=== PATIENT | female | born 1960 | race Caucasian/White ===

== ENCOUNTER 2018-01-16 08:30 | Day surgery (SDC) | payer OTHER, SELFPAY ==
[2018-01-16 08:51] VITALS: BP 154/87; PULSE 89; RESP 16; TEMP 36.7; O2SAT 99; BMI 42.7
--- NOTE | 2018-01-16 09:59 | PCM.HP.STD ---
Problem List (1) Screening for colon cancer Status: Acute History of Present Illness Date of Admission: 01/16/18 The patient is a 57 year old F who presents for screening colonoscopy. Past Medical History Allergies Penicillins Allergy (Verified 01/11/18 15:17) Anaphylaxis Home Medications: Ambulatory Orders Medication Instructions Recorded NK 01/11/18 Smoking Status: Never smoker Tobacco Use: Non-smoker - *Family History Maternal History Items: No pertinent history Review of Systems Cardiovascular: Denies: Chest Pain, Chest Pressure, Chest Tightness, Palpitations Respiratory: Denies: Cough, Hemoptysis, Shortness of breath at rest, Shortness of breath upon exertion, Wheezing Gastrointestinal: Denies: Abdominal Pain, Constipation, Diarrhea, Hematemesis, Nausea, Melena, Vomiting VTE Information - Inpt Only VTE Present on Admission: No VTE Mechan Device Prophylaxis: None VTE Pharm Prophylaxis ordered?: No Reason prophylaxis not ordered:: Treatment Not Indicated Patient Problems: Active and Suspected Problems Screening for colon cancer (Acute) - Physical Exam General: Alert, Oriented x3 Lungs: Clear to auscultation Cardiovascular: Regular rate, Regular Rhythm, No murmurs Abdomen: Bowel Sounds Present, Soft, Non Tender, Non-Distended Vital Signs Temp Pulse Resp BP Pulse Ox 98.0 F 89 16 154/87 H 99 01/16/18 08:51 01/16/18 08:51 01/16/18 08:51 01/16/18 08:51 01/16/18 08:51 Oxygen Delivery Method Room Air Weight: 233 lb 11.04 oz Body Mass Index (BMI) 42.7 Assessment/Plan All Active Problems Screening for colon cancer (Acute) My plan is to perform a colonoscopy.
--- NOTE | 2018-01-16 10:00 | COLBX_PTH ---
PATIENT: RG DAY LOC: EN U#:[id number] AGE/SX: 57/F ROOM: RE01/16/[address]: Dr. Dustin Garcia MD : 1960 BED: DIS: 01/16/2018 SPEC #: [id number] RECD: 01/16/18 16:35 STATUS: JUSTYNA RELucas #: [id number] BRENNEN: 01/16/18 10:[address]: Dustin Garcia DEPT: SURGICAL PATHOLOGY RECD BY: Marky Yusuf ENTERED: 01/17/18 11:47 SP TYPE: COLON BX OTHR DR: Dr. Jono Moncada MD Tissues: Sigmoid colon biopsy Procedures: Surgery Specimen Level IV HEADER OPERATION: Colonoscopy (MAC) PRE-OP DIAGNOSIS: Screening TISSUE SUBMITTED: Biopsy of sigmoid polyps MICROSCOPIC DIAGNOSIS Sigmoid polyps, biopsy: Fragments of hyperplastic polyp. SJ:aristeo 01/18/18 MICROSCOPIC DESCRIPTION Slides are reviewed. GROSS DESCRIPTION Received in fixative is one container labeled with the patient's name and designated biopsy of sigmoid polyps. The specimen consists of two irregular fragments of light joseph soft tissue that in aggregate measure 0.8 x 0.3 x 0.1 cm. The specimen is totally submitted in one cassette. / SJ:aristeo 01/17/18 TC:1 CPT: 63762
--- NOTE | 2018-01-16 10:04 | OP.ENDO_ITS ---
Patient Name: Johana Maria Procedure Date: 01/16/2018 9:31 AM Date of : 1960 Age: 57 Procedure: Colonoscopy Indications: Screening for colorectal malignant neoplasm Providers: Dustin Garcia MD Referring MD: Dustin Garcia MD Medicines: See the Anesthesia note for documentation of the administered medications Patient Profile: Last Colonoscopy: none. The patient's first colonoscopy is today. Complications: No immediate complications. Procedure: Pre-Anesthesia Assessment: - Prior to the procedure, a History and Physical was performed, and patient medications and allergies were reviewed. The patient's tolerance of previous anesthesia was also reviewed. The risks and benefits of the procedure and the sedation options and risks were discussed with the patient. All questions were answered, and informed consent was obtained. Prior Anticoagulants: The patient has taken no previous anticoagulant or antiplatelet agents. ASA Grade Assessment: III - A patient with severe systemic disease. After reviewing the risks and benefits, the patient was deemed in satisfactory condition to undergo the procedure. After I obtained informed consent, the scope was passed under direct vision. Throughout the procedure, the patient's blood pressure, pulse, and oxygen saturations were monitored continuously. The adult colonoscope was introduced through the anus and advanced to the ileocecal valve. The colonoscopy was performed without difficulty. The patient tolerated the procedure well. The quality of the bowel preparation was good. Scope In: 9:45:24 AM Scope Withdrawal Time 0 hours 7 minutes 54 seconds Scope Out: 9:58:41 AM Total Procedure Duration Time 0 hours 13 minutes 17 seconds Findings: Two 4 mm polyp was found in the recto-sigmoid colon. The polyp was sessile. The polyp was removed with a jumbo cold forceps. Resection and retrieval were complete. Impression: - One 4 mm polyp at the recto-sigmoid colon, removed with a jumbo cold forceps. Resected and retrieved. Recommendation: - Discharge patient to home. - Resume previous diet. - Continue present medications. - Await pathology results. - Repeat colonoscopy in 3 years for surveillance. - Return to my office in 1 week. Procedure Code(s): --- Professional --- 48141, Colonoscopy, flexible; with biopsy, single or multiple Diagnosis Code(s): --- Professional --- Z12.11, Encounter for screening for malignant neoplasm of colon D12.7, Benign neoplasm of rectosigmoid junction CPT copyright 2017 [employer] [place] [employer]. All rights reserved. The codes documented in this report are preliminary and upon enrobing machine feeder review may be revised to meet current compliance requirements. MD Dustin Levy MD 01/16/2018 10:03:53 AM This report has been signed electronically. Number of Addenda: 0 Note Initiated On: 01/16/2018 9:31 AM
[2018-01-16 10:05] VITALS: BP 125/86; BP 154/87; PULSE 79; RESP 16; TEMP 36.8; O2SAT 96
[2018-01-16 10:10] VITALS: BP 124/81; BP 154/87; PULSE 73; RESP 16
[2018-01-16 10:15] VITALS: BP 127/89; BP 154/87; PULSE 71; RESP 16; O2SAT 99
[2018-01-16 10:20] VITALS: BP 133/94; BP 154/87; PULSE 74; RESP 16; TEMP 36.6; O2SAT 100
[2018-01-16 10:39] VITALS: BP 154/87
== END 2018-01-16 10:40 | disposition home or self-care (01) ==
LOC: EN 08:33 → AC 08:34
PROVIDERS: Family Provider Family Medicine; PCP Family Medicine; Referring Provider Surgery; Visit Provider Surgery
PROC: 0DJD8ZZ Inspection of Lower Intestinal Tract, Via Natural or Artificial Opening Endoscopic (ICD-10-PCS; CPT 45378; principal; 2018-01-16 09:55)
DX: Z12.11 Encounter for screening for malignant neoplasm of colon (principal); D12.7 Benign neoplasm of rectosigmoid junction
CPT/HCPCS: 45380; 88305; J7120

== ENCOUNTER → 2018-11-10 15:30 | Outpatient (CLI) | payer OTHER, SELFPAY ==
--- NOTE | 2018-11-10 15:09 | BI_ITS ---
MAMMOGRAPHY - BILATERAL SCREENING REASON FOR EXAM: Female, 58 years old. Routine annual screening examination. PERTINENT HISTORY: Non-contributory. TECHNIQUE: Digital bilateral breast alan (3D mammographic acquisition) in the CC and MLO projections. 2-D mediolateral oblique (MLO) and craniocaudad (CC) views of both breasts were obtained. CAD: Full Field Digital Mammography with Computer Added Detection was performed. COMPARISON: Comparison is made with prior examination dated July 31, 2013. FINDINGS: Breast Composition: The breasts are heterogeneously dense, which may obscure small masses. There are no dominant masses or suspicious calcifications. Stable benign-appearing bilateral axillary lymph nodes. No other significant abnormalities are identified. There has been no significant change since the prior study. BI/SCREEN MAMM (CAD) W/ALAN BILAT IMPRESSION: Stable bilateral screening mammogram. Yearly follow-up mammogram recommended. (A) ASSESSMENT CATEGORY: BIRADS Category 2: Benign. A letter regarding these results will be sent to the patient by the facility within 30 days. Approximately 10% of breast cancers are not detected by mammography. A normal mammogram should not delay biopsy of a clinically suspicious abnormality. [id number] Electronically Signed: Jonathon Erazo, at 13:17 EDT , Service support ,
== END ==
PROVIDERS: Family Provider Family Medicine; PCP Family Medicine; Referring Provider Family Medicine; Visit Provider Family Medicine
DX: Z12.31 Encounter for screening mammogram for malignant neoplasm of breast (principal)
CPT/HCPCS: 77063; 77067

== ENCOUNTER → 2020-01-14 15:51 | Outpatient (CLI) | payer OTHER, SELFPAY ==
--- NOTE | 2020-01-14 15:54 | RAD_ITS ---
STUDY: X-RAY - LUMBAR SPINE REASON FOR EXAM: Female, 59 years old. Lumbar strain, pain more on right side for several days TECHNIQUE: 5 view(s) of the lumbar spine were obtained including oblique views. COMPARISON: None FINDINGS: Normal lumbar lordosis. There is a mild dextroscoliosis of the lumbar spine. There is a normal alignment of the vertebrae. There is multilevel endplate spondylosis of the lumbar vertebrae. There is multi-level degenerative disc disease with multi-level disc space narrowing. The soft tissue structures are unremarkable. RAD/L/S Spine Min 4 Views IMPRESSION: Degenerative changes of the spine, as detailed above. Electronically Signed: Jonathon Erazo, at 15:51 EDT , Service support ,
== END ==
PROVIDERS: PCP Family Medicine; Referring Provider Nurse Practitioner Family; Visit Provider Nurse Practitioner Family
DX: S39.012A Strain of muscle, fascia and tendon of lower back, initial encounter (principal)
CPT/HCPCS: 72110

== ENCOUNTER → 2020-04-22 10:52 | Outpatient (CLI) | payer OTHER, SELFPAY ==
[2020-04-22 12:03] LABS: Absolute Lymphocyte Count 3.24 X10^3/uL (0.83-4.51); Absolute Neutrophil Count 3.4 X10^3/uL (2.0-7.7); Basophil# 0.08 X10^3/uL; Basophil% 1.1 % (0-1); Eosinophil# 0.13 X10^3/uL; Eosinophils% 1.8 % (0-5); Hematocrit 43.5 % (37-47); Hemoglobin 14.6 g/dL (12.0-15.0); Lymphocyte # 3.24 X10^3/ul (4.0); Mean Corp Hgb Conc 33.6 g/dL (32-36); Mean Corpuscular Hgb 28.3 pg (27.0-32.0); Mean Corpuscular Volume 84.3 fL (81-99); Mean Platelet Vol. 11.3 fl (6.2-12.0); Monocyte# 0.47 X10^3/uL; Monocyte% 6.4 % (0-10); NRBC Flagged by Analyzer 0 % (0-5); Neutrophil # 3.43 X10^3/uL (2.7-7.7); Neutrophil % 46.6 % (47-70); Platelet Count 254 K/mm3 (150-450); RBC Distribution Width CV 12.3 % (11.6-14.6); RBC Distribution Width SD 37.8 fl (35.1-43.9); Red Blood Count 5.16 M/mm3 (4.2-5.4); White Blood Count 7.4 K/mm3 (4.4-11.0)
[2020-04-22 12:46] LABS: ALB/GLOB Ratio 0.9 RATIO (0.9-2.4); AST(SGOT) 34 U/L (15-37); Alanine Aminotransfer ALT/SGPT 56 U/L (13-56); Albumin, Serum 3.8 g/dL (3.2-5.0); Alkaline Phosphatase 87 U/L (45-117); Anion Gap 8 (5-15); BUN 13 mg/dL (7-18); BUN/Creat Ratio 13.1 RATIO (10-20); Calcium,Total 9.2 mg/dL (8.5-10.1); Chloride 107 mmol/L (98-107); Cholesterol 162 mg/dL (200); EST Glomerular Filtration Rate 61 mL/min (>60); Est Glom Filt Rate - Afr Amer 73 mL/min (>60); Globulin 4.2 g/dL (2.2-4.2); Glucose 228 mg/dL (74-106); High Density Lipoprotein 47 mg/dL; Potassium 3.7 mmol/L (3.5-5.1); Sodium Level 139 mmol/L (136-145); Thyroid Stim Hormone (TSH) 1.32 uIU/mL (0.358-3.74); Triglycerides 170 mg/dL; Very Low Density Lipoprotein 34 mg/dL (5-40)
[2020-04-22 13:09] LABS: Microalbumin:Creatinine Ratio 29.4 mg/g CRE (<30 mg/g CRE)
[2020-04-22 20:06] LABS: Hemoglobin A1c 6.5 % (3.8-5.6)
== END ==
PROVIDERS: PCP Family Medicine; Visit Provider Family Medicine
DX: I10 Essential (primary) hypertension (principal); E11.42 Type 2 diabetes mellitus with diabetic polyneuropathy
CPT/HCPCS: 36415; 80053; 80061; 82043; 82570; 83036; 84443; 85025

== ENCOUNTER 2020-05-26 14:00 | Outpatient (RCR) | payer OTHER, SELFPAY ==
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
--- NOTE | 2020-05-26 14:30 | HP.PTREVAL ---
Dr. Jono Pierce MD, It has been my pleasure to treat RG DAY over the last 4 visits for vertigo. Please see the progress note below for an update on the physical therapy plan of care! Subjective: Pt reports that she was cleaning this weekend and was fine with bending fw and and picking stuff up from the floor. No Positional dizziness for which she came here for... can roll over in bed and get out of bed without spinning. She has no seen her Dr for her sinus stuff. SHe is not falling SW win the shower with washing her hair. Objective/Function: Pt had no symptoms with vertical or horizontal VOR Cx for 60 seconds. She was able to walk with horizontal and vertical head turns without dizziness or symptoms. Pt has full understanding of doing her HEP including walking with head turns and VOR Cx exercises. Plan Plan: [facility] and will call in in 2 weeks if she needs to come back for help with deveolping or persistent symptoms. In 2 weeks DC if pt has no symptoms Goals Goal 1:: I HEP Goal Time Frame: 4-6 Weeks Goal Progress: Goal Met Goal 2:: Abolish dizziness Goal Time Frame: 2-4 Weeks Goal Progress: Goal Met Goal 3:: -B Hallpike Goal Time Frame: 2-4 Weeks Goal Progress: Goal Met Anticipated Interventions Patient/Client Instruction: Educate patient on: Condition, Plan of Care For the Purpose of:: To improve muscle performance and motor function, To improve ability to perform ADL's, To increase tolerance to activity/condition/position, To improve balance Therapeutic Exercise to Include: Postural training, Neuromotor development, Passive ROM For the Purpose of:: To increase tolerance to activity/condition/position, To improve performance and independence with ADL's Manual Therapy Techniques to Include: Other For the Purpose of:: To increase tolerance to activity/condition/position, To improve health of tissue Please do not hesitate to contact me at [phone] by phone or if you have questions or concerns regarding this new plan of care! Sincerely, Misa Viveros, MPT
--- NOTE | 2020-08-19 13:23 | HP.PTDCSUM ---
It has been my pleasure to treat RG DAY referred by Dr. Jono Pierce MD, with the diagnosis of vertigo for a total of 4 visit(s). Discharge Date: 08/19/20 Please see the following information for a summary of their discharge status. Subjective: Pt reports that she was cleaning this weekend and was fine with bending fw and and picking stuff up from the floor. No Positional dizziness for which she came here for... can roll over in bed and get out of bed without spinning. She has no seen her Dr for her sinus stuff. SHe is not falling SW win the shower with washing her hair. % Improvement: 100 Objective/Function: Pt had no symptoms with vertical or horizontal VOR Cx for 60 seconds. She was able to walk with horizontal and vertical head turns without dizziness or symptoms. Pt has full understanding of doing her HEP including walking with head turns and VOR Cx exercises. Goal 1:: I HEP Goal Progress: Goal Met Goal 2:: Abolish dizziness Goal Progress: Goal Met Goal 3:: -B Hallpike Goal Progress: Goal Met Plan: 08/19/2020 Pt has not called in and will be discharged at this time. Pt will continue with maintence HEP and will call in in 2 weeks if she needs to come back for help with deveolping or persistent symptoms. In 2 weeks DC if pt has no symptoms Discharge Comments: DC PT If there are questions or concerns regarding this patient's physical therapy, please feel free to call me at [phone]. Thank you for the referral of this patient. Sincerely, Misa Viveros, MPT
== END 2020-05-26 19:00 | disposition home or self-care (01) ==
LOC: PT 14:00
PROVIDERS: PCP Family Medicine; Referring Provider Family Medicine; Visit Provider Family Medicine
DX: R42 Dizziness and giddiness (principal)
CPT/HCPCS: 97110; 97161; 97530

== ENCOUNTER → 2020-10-22 06:35 | Outpatient (CLI) | payer OTHER, SELFPAY ==
[2020-10-08 08:48] VITALS: BMI 40.6
[2020-10-15 08:58] VITALS: BMI 40.6
--- NOTE | 2020-10-22 06:42 | ECHOCS_ITS ---
Reason For Study: Dyspnea/SOB Procedure This was a 2D Doppler, Color Flow transthoracic echocardiogram. The study was technically difficult. Contrast injection was performed. Exam performed in department. Left Ventricle Normal LV size. Left ventricular systolic function is normal. The estimated ejection fraction is 55 %. Stage 1 diastolic dysfunction. No regional wall motion abnormalities noted. Right Ventricle Normal RV size. Normal systolic function. Atria Normal left atrium. Normal right atrium. Mitral Valve Normal mitral valve. Tricuspid Valve Normal tricuspid valve. Aortic Valve Normal aortic valve. Trisinus/trileaflet aortic valve. Pulmonic Valve Normal pulmonic valve. Great Vessels Normal aortic root. The pulmonary artery is normal size. Normal inferior vena cava. Pericardium/Pleural No pericardial effusion. Medication 22 gauge I.V. with prn adaptor inserted into right arm. Diluted definity 3ml given slow IV push to enhance endocardial definition. MMode/2D Measurements & Calculations LVIDd: 3.8 cm IVSd: 1.3 cm Ao root diam: 3.5 cm LVIDs: 2.6 cm LVPWd: 1.4 cm LA dimension: 3.7 cm FS: 30.9 % LAV(MOD-bp): 31.0 ml LA A4 area: 11.8 cm2 RA A4 area: 8.9 cm2 LAV(MOD-bp) Indexed: 15.2 ml/m2 LAV(MOD-sp2): 36.8 ml LAV(MOD-sp4): 24.2 ml Time Measurements MV dec time: 0.41 sec Doppler Measurements & Calculations MV E max diogenes: 70.8 cm/sec Lat Peak E' Diogenes: 8.4 cm/sec Med Peak E' Diogenes: 6.8 cm/sec MV A max diogenes: 101.7 cm/sec E/E' lat: 8.4 E/E' med: 10.4 MV E/A: 0.70 MV V2 max: 114.7 cm/sec MV P1/2t max diogenes: 91.3 cm/sec Ao V2 max: 134.1 cm/sec MV max P.3 mmHg MV P1/2t: 141.5 msec Ao max P.2 mmHg MV V2 mean: 68.1 cm/sec MV dec slope: 189.1 cm/sec2 MV mean P.1 mmHg MV V2 VTI: 27.4 cm MVA(P1/2t): 1.6 cm2 LV V1 max: 131.3 cm/sec PA V2 max: 73.2 cm/sec LV V1 max P.9 mmHg ECHO/Echo Complete W/ Contrast Interpretation Summary Normal LV size. Left ventricular systolic function is normal. The estimated ejection fraction is 55 %. Stage 1 diastolic dysfunction. Contrast injection was performed. Ordering Physician: Rell Collado Referring Physician: Jono Pierce Performed By: Marciano Ferraro RCS
--- NOTE | 2020-10-22 12:56 | STRESSREP_ITS ---
Stress Test Report Exercise myocardial perfusion stress test. 60-year-old lady with a history of chest pain. Stress protocol: Resting EKG demonstrates normal sinus rhythm with a rate of 64 bpm. Resting blood pressure is 144/92 mmHg. The patient exercised according to the regular Andrew protocol for a total duration of 8 minutes and 27 seconds. Patient compl eted 2 minutes and 27 seconds into stage III of the Andrew protocol. The maximum heart rate attained was 137 bpm which was 85% of maximum predicted heart rate the maximum workload was 10.1 metabolic equivalents. The patient maintained sinus rhythm throughout the recording. At rest there were no ST or T wave changes noted to suggest ischemia. At peak exercise there was approximately 1.[address] depression noted in leads II, III and aVF and 0.[address] depression noted in V5 and V6. During recovery there was improvement in upsloping of these changes. No clinical angina was noted but the patient was noted to be moderately short of breath. The test was terminated due to dyspnea. The peak blood pressure was 174/76 mmHg. The above changes are suggestive but not diagnostic of ischemia. Myocardial perfusion protocol. 14.5 mCi of technetium 99m sestamibi was injected at rest. The patient exercised according to regular Andrew protocol for 8 minutes and 27 seconds at peak exercise 44.7 mCi of technetium 99m sestamibi was injected stress images were obtained stress and rest images were reconstructed and compared in the short axis vertical long horizontal long axis. Gated images were also obtained. Perfusion SPECT analysis: Review of the stress images demonstrate normal uptake of tracer noted in all areas of the myocardium. The resting images similarly demonstrate normal uptake of tracer noted in all areas of the myocardium. No obvious areas of reversibility are noted to suggest ischemia and no previous infarct is noted. Gated SPECT analysis: The gated ejection fraction is 74%. Conclusion: Normal exercise myocardial perfusion stress test with no evidence of ischemia. Moderate dyspnea noted. Preserved ejection fraction.
== END ==
PROVIDERS: PCP Family Medicine; Referring Provider Internal Medicine Cardiovascular Disease; Visit Provider Internal Medicine Cardiovascular Disease
DX: R06.02 Shortness of breath (principal); I10 Essential (primary) hypertension
CPT/HCPCS: 78452; 93017; 93306; A9500; Q9957; A4216; C8929; J3490

== ENCOUNTER 2020-10-22 10:15 | Outpatient (RCR) | payer OTHER, SELFPAY ==
[2020-10-08 08:48] VITALS: BMI 40.6
[2020-10-15 08:58] VITALS: BP 144/93; PULSE 75; TEMP 36.2; BMI 40.6
--- NOTE | 2020-10-15 10:05 | HP.PCM_ITS ---
History of Present Illness Date of Service: 10/15/20 Chief Complaint: Follow-up left foot plantar DFU History of Wound: 60-year-old white female who is working from home. She is diabetic blood sugars running about 150. Intolerant to taking Metformin. Patient only taking 1 a day. Not walking around much in her house. She was giving herself a pedicure and overzealous using a pumice stone caused an open area on the ball of her foot. Seems to close for her but then reopened and she noticed blood on the floor because she where walks barefoot. Last week her leg became more red and swollen and was put on levofloxacin. Patient was then referred to the wound center. [facility] Medical History Essential hypertension Obesity Obstructive sleep apnea Right bundle branch block (RBBB) Type 2 diabetes mellitus Home Medications metformin 500 mg tablet 500 mg PO DAILY 10/07/20 [History Last Taken Unknown] levofloxacin 750 mg tablet 750 mg PO DAILY tab 10/08/20 [History Last Taken Unknown] Allergy/AdvReac Type Severity Reaction Status Date / Time Penicillins Allergy Anaphylaxis Verified 10/08/20 08:49 triamcinolone [From Nasacort] Allergy hives Verified 10/08/20 08:49 cephalexin [From Keflex] AdvReac GI Upset Verified 10/08/20 08:49 diclofenac [From Voltaren] AdvReac GI Upset Verified 10/08/20 08:49 fexofenadine [From Anabelle-D] AdvReac fatigue Verified 10/08/20 08:49 pseudoephedrine AdvReac fatigue Verified 10/08/20 08:49 [From Anabelle-D] Surgical History Hx of colonoscopy Social History Smoking Status: Never smoker alcohol intake: current alcohol intake frequency: holidays/special occasions only ROS Integumentary Integumentary: Reports skin ulcer and wounds Vital Signs Vital Signs Vital Signs: 10/15/20 08:58 Temperature 97.1 F L Temperature Source Temporal Pulse Rate 75 Blood Pressure 144/93 H Blood Pressure Mean 110 Blood Pressure Source Monitor Blood Pressure Position Semi-Fowlers Blood Pressure Location Right Arm Weight Body Mass Index (BMI) 40.6 Physical Exam Const oriented x3 General Appearance: cooperative Exam Limitations: no limitations HEENT normocephalic Head and Scalp: normal to inspection Face and Sinus: normal facial exam Nose: external nose normal General Ear: hearing grossly impaired External Ear: external ears normal Mouth: oral and palatal mucosa normal Eyes PERRL General Eye: normal appearance of both eyes Neck full ROM General: normal visual inspection Resp normal respiratory effort Effort and Inspection: able to speak in complete sentences Auscultation: clear to auscultation bilaterally Cardio regular rate and regular rhythm Palpation: normal PMI Rate: regular rate Rhythm: regular rhythm GI Auscultation: normoactive bowel sounds Palpation: soft and no hepatosplenomegaly external exam normal Back/Spine Cervical Spine: cervical ROM normal Thoracic Spine / Upper Back: normal to inspection Lumbar Spine / Lower Back: normal to inspection Extremity normal to inspection General Extremity: normal exam except as noted Skin Wounds: wounds noted open and other Callus Neuro oriented x3 Psych Appearance: grossly normal Speech: normal speech Thought Content: normal thought content Judgement: judgement good Debridement Note Debridement Note Post-Debridement Measurements and Additional Note: Post-Debridement Measurements/Treatment - Nurse 1 - General Ulcer Assessment Start: 10/15/20 08:57 Freq: Status: Active Protocol: SAIDA Activity Type Activity Date Activity User E-Sign Co-Sign Detail Recorded Client Recorded Date Recorded By Document 10/15/20 08:58 EVELYNE [id number] 10/15/20 09:18 EVELYNE 10/15/20 08:58 - Today's Visit Information Type of service Initial Visit Arrival Mode Ambulatory Patient Identification Verified (Name & Yes ) Height and Weight Body Mass Index (BMI) 40.6 BMI Classification Obese Vital Signs Temperature (97.8 F-99.1 F) 97.1 F L Temperature Source Temporal Pulse Rate (60-100) 75 Pulse Location Monitor Blood Pressure (90/60-120/80) 144/93 H Blood Pressure Mean 110 Source Monitor Position Semi-Fowlers Blood Pressure Location Right Arm History Since Last Visit- (Skip if this is Patient's initial visit) Have you changed medications since your No last visit? Any new allergies or adverse reactions No Had a fall/change in ADL's that may No increase risk of falls Signs or symptoms of abuse and/or No neglect since last visit Have you been in the hospital since your No last visit? Has dressing in place as prescribed Yes Has compression in place as prescribed N/A Has offloadiing in place as prescribed N/A Experienced any changes in pain level or No management Pain Scale: 0-10 Numeric Is Patient Pain Free? Yes WC - Nurse 1 - General Ulcer Measurement Start: 10/15/20 08:57 Freq: Status: Active Protocol: Activity Type Activity Date Activity User E-Sign Co-Sign Detail Recorded Client Recorded Date Recorded By Document 10/15/20 08:58 KR [id number] 10/15/20 09:18 KR 10/15/20 08:58 Wound Center Nurse 1 #1 Left Plantar -Current Size (cm) - Length 0.2 -Current Size (cm) - Width 0.3 -Current Size (cm) - Depth 0.2 -Total Square Cm 0.06 -Exudate Amt Small -Exudate Type Serosanguineous -Wound Margin Distinct, Outline Attached -Granulation Amt Small (1-33%) -Granulation Quality Red -Necrosis Amt Small (1-33%) -Necrotic Tissue Type Adherent Slough -Texture (Yasmeen-wound Skin Appearance) Assessed, Scarring -Moisture (Yasmeen-wound Skin Appearance) No Abnormality, Assessed -Color (Yasmeen-wound Skin Appearance) No Abnormality, Assessed -Temperature (Yasmeen-wound Skin No Abnormality Appearance) (Pt Warm) -Tenderness on Palpation (Yasmeen-wound No Skin Appearance) -Ulcer Cleansing Rinsed/ Irrigated with Saline -Foul Odor after Cleansing No -Anesthetic Used 5% Lidocaine Gel Right Calf (cm) 41 Right Ankle (cm) 25 Left Calf (cm) 44 Left Ankle (cm) 25.2 - Nurse 2 - General Ulcer CM Notes Start: 10/15/20 08:57 Freq: Status: Active Protocol: Activity Type Activity Date Activity User E-Sign Co-Sign Detail Recorded Client Recorded Date Recorded By Document 10/15/20 09:30 MW [id number] 10/15/20 09:39 MW 10/15/20 09:30 Wound Center Nurse 2 #1 Left Plantar -Time 09:30 -Correct Patient Yes -Correct Side, Site, Position Yes -Correct Procedure Yes -Procedure Performed Yes -Type of Procedure Debridement -Clinical Debridement Subcutaneous -Tissue Removed Subcutaneous -Post Debridement (cm) - Length 0.4 -Post Debridement (cm) - Width 0.3 -Post Debridement (cm) - Depth 0.2 -Total Square (Post) (cm) 0.12 -Area of Debridement (cm) - Length 0.4 -Area of Debridement (cm) - Width 0.3 -Total Square (Area) (cm) 0.12 -Tunneling No -Undermining/Tunneling No -Circular Undermining No -Wound/Ulcer Outcome Not Healed -Ulcer Cleansing Rinsed/ Irrigated with Saline -Foul Odor after Cleansing No -Bioengineered Tissue No -Bleeding Controlled with Pressure -Offloading No -Treatment Response Procedure Tolerated Well -Debridement - Subq, 1st 20sq cm Yes Pain Scale: 0-10 Numeric Is Patient Pain Free? Yes - Nurse 3 - General Ulcer D/C NN Start: 10/15/20 08:57 Freq: Status: Active Protocol: Activity Type Activity Date Activity User E-Sign Co-Sign Detail Recorded Client Recorded Date Recorded By Document 10/15/20 10:01 EVELYNE [id number] 10/15/20 10:02 EVELYNE 10/15/20 10:01 Wound Care Nurse 3 #1 Left Plantar -Ulcer Cleansing Rinsed/ Irrigated with Saline -Primary Dressing Applied Aquacel Extra, NonAdherent Contact Layer -Primary Dressing Covered/Secured with Dry Gauze, Secured with Tape -Aquacel Extra 1 Left -Tubular Bandage Single Layer -Size of Tubigrip Used Size D -Size D ($) 1 Pain Scale: 0-10 Numeric Is Patient Pain Free? Yes WC - Visit Discharge Discharge Condition Stable Ambulatory Status Ambulatory Transportation Private Auto Wound debrided: Left foot DFU Laterality: Left Wound Grade/Stage: Stage III Type of Debridement: Excisional debridement Anesthesia Used: 5% Lidocaine Gel Depth: Down to and including healthy tissue and in the subcutaneous layer Percentage of wound debrided: 100 Instrument Used: 5mm curette Tissue Removed: Callus and fibrin Severity: Limited To Skin Breakdown Amount of bleeding with debridement: None Bleeding Controlled with: Pressure Patient tolerated procedure: Patient tolerated procedure well Assessment/Plan Assessment/Plan (1) Lower extremity neuropathy: CODE(S): G57.90 - Unspecified mononeuropathy of unspecified lower limb (2) Nonhealing nonsurgical wound: CODE(S): T14.8XXA - Other injury of unspecified body region, initial encounter (3) Diabetes type 2, uncontrolled: CODE(S): E11.65 - Type 2 diabetes mellitus with hyperglycemia (4) Diabetic foot ulcer associated with diabetes mellitus due to underlying condition: CODE(S): E08.621 - Diabetes mellitus due to underlying condition with foot ulcer; L97.509 - Non-pressure chronic ulcer of other part of unspecified foot with unspecified severity PLAN: Wash foot with Hibiclens or antibacterial soap apply Aquacel extra to wound base moistened cover with Adaptic and gauze tape double layer Tubigrip to leg follow-up in 1 week We will call with culture results. Patient to get diabetes under control better by may be using Trulicity and talking to her primary care doctor.
[2020-10-22 10:31] VITALS: BP 130/84; PULSE 78; RESP 18; TEMP 36.1; BMI 40.6
--- NOTE | 2020-10-22 12:17 | PCM.WC.PN ---
History of Present Illness Date of Service: 10/22/20 Chief Complaint: Follow-up left foot plantar DFU History of Wound: 60-year-old white female who is working from home. She is diabetic blood sugars running about 150. Intolerant to taking Metformin. Patient only taking 1 a day. Not walking around much in her house. She was giving herself a pedicure and overzealous using a pumice stone caused an open area on the ball of her foot. Seems to close for her but then reopened and she noticed blood on the floor because she where walks barefoot. Last week her leg became more red and swollen and was put on levofloxacin. Patient was then referred to the wound center. Subjective Subjective Complaints the dressings keep falling off Objective Data Objective Data The wound looks closed and really does not need any more dressing changes she has a thin skin over it but she has a protruding ball of the foot that causes her to friction and cause callus I put a pad over the area to prevent this from occurring. Patient also was positive for staph infection and has not been treated for that so we will start her on antibiotic therapy for that and follow her up in 2 weeks Vital Signs: Vital Signs Temp Pulse Resp BP 97 F L 78 18 130/84 H 10/22/20 10:31 10/22/20 10:31 10/22/20 10:31 10/22/20 10:31 Body Mass Index (BMI) 40.6 Lab / Micro Data Micro: Microbiology 10/15/20 09:40 Wound Abcess - Plantar Gram Stain - Final 10/15/20 09:40 Wound Abcess - Plantar Wound Culture - Final Staphylococcus aureus Staphylococcus epidermidis 10/15/20 09:40 Wound Abcess - Plantar Anaerobic Culture - Final No anaerobic bacteria isolated. Physical Exam Const oriented x3 General Appearance: cooperative Exam Limitations: no limitations HEENT normocephalic Head and Scalp: normal to inspection Face and Sinus: normal facial exam Nose: external nose normal General Ear: hearing grossly impaired External Ear: external ears normal Mouth: oral and palatal mucosa normal Eyes PERRL General Eye: normal appearance of both eyes Neck full ROM General: normal visual inspection Resp normal respiratory effort Effort and Inspection: able to speak in complete sentences Auscultation: clear to auscultation bilaterally Cardio regular rate and regular rhythm Palpation: normal PMI Rate: regular rate Rhythm: regular rhythm GI Auscultation: normoactive bowel sounds Palpation: soft and no hepatosplenomegaly external exam normal Back/Spine Cervical Spine: cervical ROM normal Thoracic Spine / Upper Back: normal to inspection Lumbar Spine / Lower Back: normal to inspection Extremity normal to inspection General Extremity: normal exam except as noted Skin Wounds: wounds noted open and other Callus Neuro oriented x3 Psych Appearance: grossly normal Speech: normal speech Thought Content: normal thought content Judgement: judgement good Debridement Note Debridement Note Post-Debridement Measurements and Additional Note: Post-Debridement Measurements/Treatment - Nurse 1 - General Ulcer Assessment Start: 10/15/20 08:57 Freq: Status: Active Protocol: HENRY.LOWEXT Activity Type Activity Date Activity User E-Sign Co-Sign Detail Recorded Client Recorded Date Recorded By Document 10/15/20 08:58 KR [id number] 10/15/20 09:18 KR Document 10/22/20 10:31 RB [id number] 10/22/20 10:33 RB 10/15/20 10/22/20 08:58 10:31 - Today's Visit Information Type of service Initial Visit Follow-up Visit (Physician/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 SPECIALIST ) Arrival Mode Ambulatory Ambulatory Transfer Assistance None Patient Identification Verified (Name & Yes Yes ) Patient Requires Transmission-Based No Precautions Height and Weight Body Mass Index (BMI) 40.6 40.6 BMI Classification Obese Obese Vital Signs Temperature (97.8 F-99.1 F) 97.1 F L 97 F L Temperature Source Temporal Temporal Pulse Rate (60-100) 75 78 Pulse Location Monitor Monitor Respiratory Rate (12-18) 18 Respiratory rate source Observation Blood Pressure (90/60-120/80) 144/93 H 130/84 H Blood Pressure Mean (mm Hg) 110 99 Source Monitor Monitor Position Semi-Fowlers Semi-Fowlers Blood Pressure Location Right Arm Left Arm History Since Last Visit- (Skip if this is Patient's initial visit) Have you changed medications since your No No last visit? Any new allergies or adverse reactions No No Had a fall/change in ADL's that may No No increase risk of falls Signs or symptoms of abuse and/or No No neglect since last visit Have you been in the hospital since your No No last visit? Has dressing in place as prescribed Yes Yes Has compression in place as prescribed N/A No Has offloadiing in place as prescribed N/A No Experienced any changes in pain level or No No management Pain Scale: 0-10 Numeric Is Patient Pain Free? Yes Yes WC - Nurse 1 - General Ulcer Measurement Start: 10/15/20 08:57 Freq: Status: Active Protocol: Activity Type Activity Date Activity User E-Sign Co-Sign Detail Recorded Client Recorded Date Recorded By Document 10/15/20 08:58 KR [id number] 10/15/20 09:18 KR Document 10/22/20 10:31 RB [id number] 10/22/20 10:33 RB 10/15/20 10/22/20 08:58 10:31 Wound Center Nurse 1 #1 Left Plantar -Combined with other wound No -Current Size (cm) - Length 0.2 0.1 -Current Size (cm) - Width 0.3 0.1 -Current Size (cm) - Depth 0.2 0.1 -Total Square Cm 0.06 0.01 -Tunneling No -Undermining/Tunneling No -Circular Undermining No -Exudate Amt Small Small -Exudate Type Serosanguineous Serosanguineous -Wound Margin Distinct, Distinct, Outline Outline Attached Attached -Granulation Amt Small (1-33%) Medium (34-66%) -Granulation Quality [place] -Slough/Fibrin Yes -Necrosis Amt Small (1-33%) Small (1-33%) -Necrotic Tissue Type Adherent Slough Adherent Slough -Structure Exposed N/A -Texture (Yasmeen-wound Skin Appearance) Assessed, Assessed Scarring -Moisture (Yasemen-wound Skin Appearance) No Abnormality, Assessed Assessed -Color (Yasmeen-wound Skin Appearance) No Abnormality, Assessed Assessed -Temperature (Yasmeen-wound Skin No Abnormality No Abnormality Appearance) (Pt Warm) (Pt Warm) -Tenderness on Palpation (Yasmeen-wound No No Skin Appearance) -Ulcer Cleansing Rinsed/ Wound Cleanser Irrigated with Saline -Foul Odor after Cleansing No No -Anesthetic Used 5% Lidocaine 5% Lidocaine Gel Gel Right Calf (cm) 41 Right Ankle (cm) 25 Left Calf (cm) 44 Left Ankle (cm) 25.2 WC - Nurse 2 - General Ulcer CM Notes Start: 10/15/20 08:57 Freq: Status: Active Protocol: Activity Type Activity Date Activity User E-Sign Co-Sign Detail Recorded Client Recorded Date Recorded By Document 10/15/20 09:30 MW [id number] 10/15/20 09:39 MW Document 10/22/20 10:55 MW [id number] 10/22/20 11:00 MW 10/15/20 10/22/20 09:30 10:55 Wound Center Nurse 2 #1 Left Plantar -Time 09:30 10:55 -Correct Patient Yes Yes -Correct Side, Site, Position Yes Yes -Correct Procedure Yes Yes -Procedure Performed Yes No -Type of Procedure Debridement -Clinical Debridement Subcutaneous -Tissue Removed Subcutaneous -Post Debridement (cm) - Length 0.4 0 -Post Debridement (cm) - Width 0.3 0 -Post Debridement (cm) - Depth 0.2 0 -Total Square (Post) (cm) 0.12 0 -Area of Debridement (cm) - Length 0.4 -Area of Debridement (cm) - Width 0.3 -Total Square (Area) (cm) 0.12 -Tunneling No No -Undermining/Tunneling No No -Circular Undermining No No -Wound/Ulcer Outcome Not Healed Healed- Epithelialized -Ulcer Cleansing Rinsed/ Irrigated with Saline -Foul Odor after Cleansing No -Bioengineered Tissue No -Bleeding Controlled with Pressure -Offloading No -Treatment Response Procedure Tolerated Well -Debridement - Subq, 1st 20sq cm Yes Pain Scale: 0-10 Numeric Is Patient Pain Free? Yes Yes - Nurse 3 - General Ulcer D/C NN Start: 10/15/20 08:57 Freq: Status: Active Protocol: Activity Type Activity Date Activity User E-Sign Co-Sign Detail Recorded Client Recorded Date Recorded By Document 10/15/20 10:01 KR [id number] 10/15/20 10:02 KR Document 10/22/20 11:01 MW [id number] 10/22/20 11:01 MW 10/15/20 10/22/20 10:01 11:01 Wound Care Nurse 3 #1 Left Plantar -Ulcer Cleansing Rinsed/ Irrigated with Saline -Primary Dressing Applied Aquacel Extra, NonAdherent Contact Layer -Primary Dressing Covered/Secured with Dry Gauze, Secured with Tape -Aquacel Extra 1 Left -Tubular Bandage Single Layer -Size of Tubigrip Used Size D -Size D ($) 1 Treatment Response Procedure Tolerated Well Pain Scale: 0-10 Numeric Is Patient Pain Free? Yes Yes Teaching: Wound Center Dressing Your Wound -Person Taught Patient -Teaching Method Discussion -Response to teaching Verbalize understanding WC - Visit Discharge Discharge Condition Stable Stable Ambulatory Status Ambulatory Ambulatory Transportation Private Auto Private Auto Accompanied by self Medication Reconcilliation completed & No provided to patient/care provider Clinical Summary of Care Provided Yes Wound debrided: Left plantar foot No debridement was completed: No debridement was completed today Assessment/Plan Assessment/Plan (1) Nonhealing nonsurgical wound: CODE(S): T14.8XXA - Other injury of unspecified body region, initial encounter PLAN: Wear the pad on the ball of the foot over the wound area change as needed (2) Diabetes type 2, uncontrolled: CODE(S): E11.65 - Type 2 diabetes mellitus with hyperglycemia QUALIFIERS: Glycemic state: with hyperglycemia Qualified Code(s): E11.65 - Type 2 diabetes mellitus with hyperglycemia (3) Infection: CODE(S): B99.9 - Unspecified infectious disease PLAN: Start her on Bactrim DS 1 p.o. twice daily for 10 days follow-up in 2 weeks
== END 2020-10-25 23:59 ==
LOC: WC 10:15
PROVIDERS: PCP Family Medicine; Visit Provider Nurse Practitioner
DX: E11.621 Type 2 diabetes mellitus with foot ulcer (principal); L97.521 Non-pressure chronic ulcer of other part of left foot limited to breakdown of skin; E11.40 Type 2 diabetes mellitus with diabetic neuropathy, unspecified; M79.89 Other specified soft tissue disorders; G47.33 Obstructive sleep apnea (adult) (pediatric); I10 Essential (primary) hypertension; E66.9 Obesity, unspecified; Z79.899 Other long term (current) drug therapy; Z79.84 Long term (current) use of oral hypoglycemic drugs; Z68.41 Body mass index [BMI] 40.0-44.9, adult; E11.65 Type 2 diabetes mellitus with hyperglycemia
CPT/HCPCS: 11042; 87070; 87075; 87077; 87186; 87205; 99213; G0463

== ENCOUNTER 2020-11-05 11:05 | Outpatient (RCR) | payer OTHER, SELFPAY ==
[2020-10-26 00:39] VITALS: BP 130/84; PULSE 78; RESP 18; TEMP 36.1
[2020-11-05 11:07] VITALS: PULSE 71; RESP 18; TEMP 35.7; BMI 40.6
--- NOTE | 2020-11-05 11:22 | PCM.WC.PN ---
History of Present Illness Date of Service: 11/05/20 Chief Complaint: Follow-up left foot plantar DFU History of Wound: 60-year-old white female who is working from home. She is diabetic blood sugars running about 150. Intolerant to taking Metformin. Patient only taking 1 a day. Not walking around much in her house. She was giving herself a pedicure and overzealous using a pumice stone caused an open area on the ball of her foot. Seems to close for her but then reopened and she noticed blood on the floor because she where walks barefoot. Last week her leg became more red and swollen and was put on levofloxacin. Patient was then referred to the wound center. Progress of Wound: The wound is at a thin piece of skin over and she is not developing any more callus around it because last week we put her on pads to cover the wound area which is worked very well for her. She has a hyper arch with a protruding plantar foot area. She will need to wear pads on that area to protect the skin from breakdown Subjective Subjective Patient has no concerns and is happy with the healing Objective Data Objective Data No callus noted around the wound wound is clean has a good piece of skin laying over top patient will be discharged from the wound center and follow-up as needed Vital Signs: Vital Signs Temp Pulse Resp BP 96.3 F L 71 18 130/84 H 11/05/20 11:07 11/05/20 11:07 11/05/20 11:07 10/26/20 00:39 Body Mass Index (BMI) 40.6 Lab / Micro Data Attestation: I reviewed the patient's lab results. Physical Exam Const oriented x3 General Appearance: cooperative Exam Limitations: no limitations HEENT normocephalic Head and Scalp: normal to inspection Face and Sinus: normal facial exam Nose: external nose normal General Ear: hearing grossly impaired External Ear: external ears normal Mouth: oral and palatal mucosa normal Eyes PERRL General Eye: normal appearance of both eyes Neck full ROM General: normal visual inspection Resp normal respiratory effort Effort and Inspection: able to speak in complete sentences Auscultation: clear to auscultation bilaterally Cardio regular rate and regular rhythm Palpation: normal PMI Rate: regular rate Rhythm: regular rhythm GI Auscultation: normoactive bowel sounds Palpation: soft and no hepatosplenomegaly external exam normal Back/Spine Cervical Spine: cervical ROM normal Thoracic Spine / Upper Back: normal to inspection Lumbar Spine / Lower Back: normal to inspection Extremity normal to inspection General Extremity: normal exam except as noted Skin Wounds: wounds noted open and other Callus Neuro oriented x3 Psych Appearance: grossly normal Speech: normal speech Thought Content: normal thought content Judgement: judgement good Debridement Note Debridement Note Post-Debridement Measurements and Additional Note: Post-Debridement Measurements/Treatment - Nurse 1 - General Ulcer Assessment Start: 11/05/20 11:06 Freq: Status: Active Protocol: SAIDA Activity Type Activity Date Activity User E-Sign Co-Sign Detail Recorded Client Recorded Date Recorded By Document 11/05/20 11:07 PL [id number] 11/05/20 11:12 PL 11/05/20 11:07 WC - Today's Visit Information Type of service Follow-up Visit (Physician/[employer]WORK [employer] ) Arrival Mode Ambulatory Patient Identification Verified (Name & Yes ) Patient Requires Transmission-Based No Precautions Safety Precautions NA Height and Weight Body Mass Index (BMI) 40.6 BMI Classification Obese Vital Signs Temperature (97.8 F-99.1 F) 96.3 F L Temperature Source Temporal Pulse Rate (60-100) 71 Respiratory Rate (12-18) 18 History Since Last Visit- (Skip if this is Patient's initial visit) Have you changed medications since your No last visit? Any new allergies or adverse reactions No Had a fall/change in ADL's that may No increase risk of falls Signs or symptoms of abuse and/or No neglect since last visit Have you been in the hospital since your No last visit? Has dressing in place as prescribed Yes Has compression in place as prescribed N/A Has offloadiing in place as prescribed N/A Experienced any changes in pain level or No management Pain Scale: 0-10 Numeric Is Patient Pain Free? No - Nurse 1 - General Ulcer Measurement Start: 11/05/20 11:06 Freq: Status: Active Protocol: Activity Type Activity Date Activity User E-Sign Co-Sign Detail Recorded Client Recorded Date Recorded By Document 11/05/20 11:07 PL [id number] 11/05/20 11:12 PL 11/05/20 11:07 Wound Center Nurse 1 #1 Left Plantar -Current Size (cm) - Length 0.2 -Current Size (cm) - Width 0.2 -Current Size (cm) - Depth 0.1 -Total Square Cm 0.04 -Photo Taken No -Tunneling No -Undermining/Tunneling No -Circular Undermining No -Exudate Amt None Present -Granulation Amt Large (67-100%) -Granulation Quality [place] -Slough/Fibrin Yes -Necrosis Amt Small (1-33%) -Necrotic Tissue Type Eschar -Texture (Yasmeen-wound Skin Appearance) No Abnormality -Moisture (Yasmeen-wound Skin Appearance) No Abnormality -Color (Yasmeen-wound Skin Appearance) No Abnormality -Temperature (Yasmeen-wound Skin No Abnormality Appearance) (Pt Warm) -Tenderness on Palpation (Yasmeen-wound No Skin Appearance) -Ulcer Cleansing Rinsed/ Irrigated with Saline -Anesthetic Used 5% Lidocaine Gel WC - Nurse 2 - General Ulcer CM Notes Start: 11/05/20 11:06 Freq: Status: Active Protocol: Activity Type Activity Date Activity User E-Sign Co-Sign Detail Recorded Client Recorded Date Recorded By Document 11/05/20 11:20 MW [id number] 11/05/20 11:22 MW 11/05/20 11:20 Wound Center Nurse 2 -Time 11:21 -Correct Patient Yes -Correct Side, Site, Position Yes -Correct Procedure Yes -Procedure Performed No -Post Debridement (cm) - Length 0 -Post Debridement (cm) - Width 0 -Post Debridement (cm) - Depth 0 -Total Square (Post) (cm) 0 -Wound/Ulcer Outcome Healed- Epithelialized Pain Scale: 0-10 Numeric Is Patient Pain Free? Yes Wound debrided: Left plantar foot Wound Grade/Stage: Stage II No debridement was completed: No debridement was completed today Assessment/Plan Assessment/Plan (1) Nonhealing nonsurgical wound: CODE(S): T14.8XXA - Other injury of unspecified body region, initial encounter PLAN: Wear the pad on the ball of the foot over the wound area change as needed Discharge from the wound center and follow-up as needed (2) Diabetes type 2, uncontrolled: CODE(S): E11.65 - Type 2 diabetes mellitus with hyperglycemia QUALIFIERS: Glycemic state: with hyperglycemia Qualified Code(s): E11.65 - Type 2 diabetes mellitus with hyperglycemia (3) Infection: CODE(S): B99.9 - Unspecified infectious disease PLAN: Infection resolved
== END 2020-11-05 11:52 | disposition home or self-care (01) ==
LOC: WC 11:05
PROVIDERS: PCP Family Medicine; Visit Provider Nurse Practitioner
DX: E11.621 Type 2 diabetes mellitus with foot ulcer (principal); T14.8XXA Other injury of unspecified body region, initial encounter; E11.65 Type 2 diabetes mellitus with hyperglycemia; M79.89 Other specified soft tissue disorders; L97.529 Non-pressure chronic ulcer of other part of left foot with unspecified severity
CPT/HCPCS: 99213; G0463

== ENCOUNTER 2021-06-08 15:58 | Outpatient (CLI) | payer OTHER, SELFPAY ==
--- NOTE | 2021-06-08 16:00 | RAD_ITS ---
STUDY: X-RAY - THORACIC SPINE REASON FOR EXAM: Female, 60 years old. Pain. TECHNIQUE: 3 view(s) of the thoracic spine were obtained. COMPARISON: None. FINDINGS: Osteopenia. Increased kyphosis. Thoracolumbar scoliosis. Marked anterior wedge compression deformity of T10, age undetermined. Endplate concavities of multiple vertebral bodies compatible with osteoporosis intervertebral disc space narrowing diffusely, most marked at T11-T12 and T12-L1. The soft tissue structures are unremarkable. RAD/Thoracic Spine 2 Views IMPRESSION: Osteopenia with anterior wedge compression deformity of T10, age undetermined, with kyphotic angulation at this level. Diffuse thoracic spondylosis most marked at T11-T12 and T12-L1. Electronically Signed: Silvino Barrios MD at 9:54 EDT ,
== END 2021-06-08 23:59 | disposition home or self-care (01) ==
LOC: MTRAD 15:59
PROVIDERS: Referring Provider Nurse Practitioner Family; Visit Provider Nurse Practitioner Family
DX: M47.814 Spondylosis without myelopathy or radiculopathy, thoracic region (principal)
CPT/HCPCS: 72070

== ENCOUNTER 2021-06-24 08:42 | Outpatient (CLI) | payer OTHER, SELFPAY ==
--- NOTE | 2021-06-24 08:47 | BD_ITS ---
STUDY: DUAL ENERGY X-RAY ABSORPTIOMETRY / DXA REASON FOR EXAM: Female, 60 years old. 627.8Menopausal postmenopausalBONE DENSITY REASON FOR EXAM TECHNIQUE: Bone Mineral Density (BMD) measurements of lumbar spine and bilateral hips were obtained. COMPARISON: None. FINDINGS: Lumbar Spine (L1-L4): g/cm2 (0.928) / T-score (-1.1) / Z-score (0.3) Findings are suggestive of osteopenia with a low fracture risk. Left Femur Total: g/cm2 (0.855) / T-score (-0.7) / Z-score (0.2) Left Femoral Neck: g/cm2 (0.633) / T-score (-1.9) / Z-score (-0.7) Right Femur Total: g/cm2 (0.727) / T-score (-1.8) / Z-score (-0.8) Right Femoral Neck: g/cm2 (0.587) / T-score (-2.4) / Z-score (-1.1) BD/Dexa Bone Density Study IMPRESSION: The patient is considered osteopenic as outlined below according to World Bryant Organization (WHO) criteria with a high fracture risk. Reference Information: The T-score is the number of standard deviations above or below the standard which is normal for young adults at their peak bone mineral density. The World Health Organization (WHO) interprets the T-scores as follows: Above -1 Normal bone density Between -1 and -2.5 Osteopenia Equal to / or below -2.5 Osteoporosis As a practical clinical guideline, osteopenia may be graded as follows: Mild -1 through -1.5 Moderate -1.6 through -2.0 Severe -2.1 through -2.4 The Z-score is the number of standard deviations above or below age-matched controls. A Z-score of less than -1.5 would be considered abnormal. References: 1. NIH Osteoporosis and Related Bone Diseases www osteo.org 2. International Society for Clinical Densitometry www iscd.org 3. National Osteoporosis Foundation www nof.org Electronically Signed: Jonathon Erazo MD at 10:38 EDT ,
== END 2021-06-24 23:59 | disposition home or self-care (01) ==
PROVIDERS: PCP Nurse Practitioner Family; Visit Provider Nurse Practitioner Family
DX: Z13.820 Encounter for screening for osteoporosis (principal)
CPT/HCPCS: 77080

== ENCOUNTER 2021-06-24 15:30 | Outpatient (RCR) | payer OTHER, SELFPAY | END 2021-06-25 23:59 | LOC: DC 15:30 | PROVIDERS: PCP Family Medicine; Referring Provider Nurse Practitioner Family; Visit Provider Nurse Practitioner Family | DX: E11.42 Type 2 diabetes mellitus with diabetic polyneuropathy (principal); E66.9 Obesity, unspecified | CPT/HCPCS: 97802; 97803; G0108 ==

== ENCOUNTER 2021-06-29 08:23 | Outpatient (RCR) | payer OTHER, SELFPAY | END 2021-07-25 23:59 | LOC: DC 08:23 | PROVIDERS: PCP Nurse Practitioner Family; Referring Provider Nurse Practitioner Family; Visit Provider Nurse Practitioner Family | DX: E11.42 Type 2 diabetes mellitus with diabetic polyneuropathy (principal); E66.9 Obesity, unspecified | CPT/HCPCS: G0108 ==

== ENCOUNTER 2021-07-13 13:53 | Outpatient (CLI) | payer OTHER, SELFPAY ==
--- NOTE | 2021-07-13 13:54 | MRI_ITS ---
EXAM: MR THORACIC SPINE WITHOUT INTRAVENOUS CONTRAST CLINICAL INDICATION: pain X 2 MONTHS TECHNIQUE: Multiplanar and multisequence MR images of the thoracic spine without intravenous contrast. This report was created using [employer] report Roomish technology. COMPARISON: None. 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 Anterior aspects of the T8 and T10 vertebral bodies are fused. No fracture. DISCS/SPINAL CANAL/NEURAL FORAMINA: At the T9 level at the point of focal kyphosis the AP diameter of the canal is narrowed to 6 mm and there is impingement upon the anterior aspect of the cord. Above and below this level with cord appears normal. Normal disc height and morphology. Normal spinal canal and neuroforamina. SPINAL CORD: Moderate compression of the cord at the T9 level at the point of focal kyphosis. SOFT TISSUES: Unremarkable. MRI/Spine Thoracic (Routine) IMPRESSION: 1. 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 2. Anterior aspects of the T8 and T10 vertebral bodies are fused. 3. Moderate spinal stenosis at T9 at the level of the focal kyphosis with compression of the cord. Electronically Signed: Benitez Douglas MD at 5:13 EDT ,
== END 2021-07-13 23:59 | disposition home or self-care (01) ==
LOC: MRI 13:54
PROVIDERS: PCP Nurse Practitioner Family; Visit Provider Orthopaedic Surgery
DX: S22.079A Unspecified fracture of T9-T10 vertebra, initial encounter for closed fracture (principal); M85.80 Other specified disorders of bone density and structure, unspecified site
CPT/HCPCS: 72146

== ENCOUNTER 2021-08-13 11:30 | Outpatient (RCR) | payer OTHER, SELFPAY ==
--- NOTE | 2021-08-07 14:18 | HP.PTEVAL_ITS ---
Patient's Visit Information RG DAY is a 60 year old F referred to Physical Therapy by Dr. Leonard Berg DO with a diagnosis of thoracic hemivertebra. Date of Evaluation: 08/07/21 Physical Therapist: Basil Ponce, DPT, OCS, CSCS - Visit Plan Frequency: 2x /Week Duration: 4-6 Weeks Plan: 2x/week for 4 weeks for. 1. thoracic ext mobs and ROM exercises and stretches into ext and rotation. 2. thoracic and lumbar/core strength ex to I HEP. 3. MH and STM as needed, ES if needed. Postural and body mechanics/positioning focus. - Subjective Back pain. I have scolisosis and DDD in LB. This pain is up around shoulder blades and does not give her symptoms in arms or legs. Did some x rays and MRI which were OK. Not constant pain but has a hard time sitting in certain chairs. I can walk and clean house and can do normal activities but back can tighten up. LB spasms and mid back gets painful. Not sure why mid back pain started, LBP is common for her. Sitting at desk working form home can make her worse. 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 Does some weight training exercises with 3# weights which do not help or hurt. Sleep is OK most of time - Pain Mid back Pain Intensity (Out of 10): 1 Pain Intensity Range: 0, 10 - Objective L thoracic rib hump showing scoliosis. Kyphosis in thoracic spine. Forward head. UE and LE AROM WFL, tightness in HS and gastroc moderately. spinal ROM extension max limited, rotation min limited, flexion is OK. reflexes 2/3 patella and achilles. Sensation LE WNL to gross light touch. Walks well and trasnfers easily today showing only trunk weakness 3+/4 ext and flexion. - slump and - SLR. No tenderness in thoracic paraspinals today. - Balance/Special Test Scores Oswestry Low Back Score: 10 - Goals Goal 1:: Pain diminished to 2/10 at worst in T/S and 75% improved. Goal Time Frame: 4-6 Weeks Goal 2:: I management of condition with stretches and core strength Goal Time Frame: 4-6 Weeks Goal 3:: oswestry score less than 5 Goal Time Frame: 4-6 Weeks - Rehabilitation Potential Physical Therapy Diagnosis: thoracic pain Rehabilitation Potential: Fair - Anticipated Interventions Patient/Client Instruction: Educate patient on: Condition, Plan of Care For the Purpose of:: To decrease pain, To increase ROM, To increase tolerance to activity/condition/position, To improve ability of physical actions for h ome/community/work/leisure Therapeutic Exercise to Include: Strength training, Postural training, Passive ROM, Active ROM, Dynamic Lumbar Stabilization, Ryan Exercises For the Purpose of:: To decrease pain, To increase ROM, To improve muscle performance and motor function, To increase tolerance to activity/condition/position, To improve ability of physical actions for home/community/work/leisure Manual Therapy Techniques to Include: Mobilization, Soft tissue mobilization For the Purpose of:: To increase ROM TENS: Yes Thermo therapy (hot pack): Yes For the Purpose of:: To decrease pain, To increase ROM Thank you for the opportunity to evaluate your patient. For Medicare and Medicare HMO plans, please review the plan of care and approve it. It will need to be FAXED BACK to us at [phone] for Medicare purposes. For Medicare only, by signing this I certify the plan of care. Please let me know if there are questions or concerns regarding this plan of care. Physician Signatur e: Date:
--- NOTE | 2021-10-01 16:32 | HP.PT.NRP ---
RG DAY was seen in my office for initial evaluation on 08/07/21. The following Plan of Care was established for this patient: Initial Frequency: 2x /Week Initial Duration: 4-6 Weeks Patient/Client Instruction: Educate patient on: Condition, Plan of Care For the Purpose of:: To decrease pain, To increase ROM, To increase tolerance to activity/condition/position, To improve ability of physical actions for home/community/work/leisure Therapeutic Exercise to Include: Strength training, Postural training, Passive ROM, Active ROM, Dynamic Lumbar Stabilization, Ryan Exercises For the Purpose of:: To decrease pain, To increase ROM, To improve muscle performance and motor function, To increase tolerance to activity/condition/position, To improve ability of physical actions for home/community/work/leisure Manual Therapy Techniques to Include: Mobilization, Soft tissue mobilization For the Purpose of:: To increase ROM TENS: Yes Thermo therapy (hot pack): Yes For the Purpose of:: To decrease pain, To increase ROM This patient was last seen in our office 08/13/21. Pertinent comments regarding their Physical therapy will appear below: Pt seen two visits of POC but did not attend any further visits. At this point, it has been over 6 weeks and I will discontinue due to nonattendance. At this point I will be discontinuing this patient from physical therapy. I would be happy to see this patient again in the future if found appropriate by the physician. Thank you! Basil Ponce, DPT, OCS, CSCS Balance/Gait/Functional tests - Balance/Special Test Scores Oswestry Low Back Score: 10
== END 2021-08-13 19:00 | disposition home or self-care (01) ==
LOC: PT 11:30
PROVIDERS: PCP Nurse Practitioner Family; Referring Provider Orthopaedic Surgery; Visit Provider Orthopaedic Surgery
DX: Q76.49 Other congenital malformations of spine, not associated with scoliosis (principal)
CPT/HCPCS: 97110; 97161

== ENCOUNTER 2021-09-09 08:58 | Outpatient (RCR) | payer OTHER, SELFPAY | END 2021-09-24 23:59 | LOC: DC 08:58 | PROVIDERS: PCP Nurse Practitioner Family; Referring Provider Nurse Practitioner Family; Visit Provider Nurse Practitioner Family | DX: E11.42 Type 2 diabetes mellitus with diabetic polyneuropathy (principal); E66.9 Obesity, unspecified | CPT/HCPCS: 97803 ==

== ENCOUNTER → 2021-12-31 | Outpatient (CLI) | payer OTHER, SELFPAY ==
--- NOTE | 2021-12-31 16:01 | BI_ITS ---
MAMMOGRAPHY - BILATERAL SCREENING REASON FOR EXAM: Female, 61 years old. Routine annual screening examination. PERTINENT HISTORY: Non-contributory. 20 pound weight loss. TECHNIQUE: Digital bilateral breast alan (3D mammographic acquisition) in the CC and MLO projections. 2-D mediolateral oblique (MLO) and craniocaudad (CC) views of both breasts were obtained. CAD: Full Field Digital Mammography with Computer Added Detection was performed. COMPARISON: Comparison is made with prior study dated 11/10/2018. FINDINGS: Breast Composition: The breasts are heterogeneously dense, which may obscure small masses. There are no dominant masses or suspicious calcifications. No other significant abnormalities are identified. There has been no significant change since the prior study. BI/SCRN MAMM (CAD)W/ALAN BILAT IMPRESSION: Stable bilateral screening mammogram. Yearly follow-up mammogram recommended. (A) ASSESSMENT CATEGORY: BIRADS Category 1: Negative. A letter regarding these results will be sent to the patient by the facility within 30 days. Approximately 10% of breast cancers are not detected by mammography. A normal mammogram should not delay biopsy of a clinically suspicious abnormality. [id number] Electronically Signed: Jonathon Erazo MD at 8:19 EDT ,
== END | disposition home or self-care (01) ==
LOC: OPBI 15:59
PROVIDERS: PCP Family Medicine; Visit Provider Family Medicine
DX: Z12.31 Encounter for screening mammogram for malignant neoplasm of breast (principal)
CPT/HCPCS: 77063; 77067

== ENCOUNTER → 2022-04-09 | Outpatient (CLI) | payer OTHER, SELFPAY ==
[2022-04-09 12:18] LABS: Absolute Lymphocyte Count 3.23 X10^3/uL (0.83-4.51); Absolute Neutrophil Count 4.9 X10^3/uL (2.0-7.7); Basophil# 0.08 X10^3/uL; Basophil% 0.9 % (0-1); Eosinophil# 0.11 X10^3/uL; Eosinophils% 1.2 % (0-5); Hematocrit 44.6 % (37-47); Hemoglobin 15.8 g/dL (12.0-15.0); Lymphocyte # 3.23 X10^3/ul (0.83-4.51); Lymphocyte % 36.1 % (19-41); Mean Corp Hgb Conc 35.4 g/dL (32-36); Mean Corpuscular Hgb 29.3 pg (27.0-32.0); Mean Corpuscular Volume 82.7 fL (81-99); Mean Platelet Vol. 10.5 fl (6.2-12.0); Monocyte# 0.57 X10^3/uL; Monocyte% 6.4 % (0-10); NRBC Flagged by Analyzer 0 % (0-5); Neutrophil # 4.94 X10^3/uL (2.7-7.7); Neutrophil % 55.2 % (47-70); Platelet Count 314 K/mm3 (150-450); RBC Distribution Width CV 12.6 % (11.6-14.6); RBC Distribution Width SD 38.3 fl (35.1-43.9); Red Blood Count 5.39 M/mm3 (4.2-5.4)
[2022-04-09 12:43] LABS: BNP,B-Type NATRIURETIC PEPTIDE 10.2 pg/mL (0-100)
[2022-04-09 13:07] LABS: Anion Gap 9 (5-15); BUN 12 mg/dL (7-18); BUN/Creat Ratio 13.8 RATIO (10-20); Calcium,Total 9.4 mg/dL (8.5-10.1); Chloride 107 mmol/L (98-107); Creatinine, Serum 0.87 mg/dL (0.55-1.02); EST Glomerular Filtration Rate 71 mL/min (>60); Est Glom Filt Rate - Afr Amer 86 mL/min (>60); Free T3 2.6 pg/mL (2.18-3.98); Glucose 166 mg/dL (74-106); Potassium 3.9 mmol/L (3.5-5.1); Sodium Level 139 mmol/L (136-145); T4 Free Direct 0.87 ng/dL (0.76-1.46); Thyroid Stim Hormone (TSH) 1.76 uIU/mL (0.358-3.74)
== END | disposition home or self-care (01) ==
LOC: LAB 11:22
PROVIDERS: PCP Family Medicine; Referring Provider Nurse Practitioner Gerontology; Visit Provider Nurse Practitioner Gerontology
DX: R06.02 Shortness of breath (principal); R53.83 Other fatigue
CPT/HCPCS: 36415; 80048; 82306; 83880; 84439; 84443; 84481; 85025

== ENCOUNTER → 2022-10-18 | Outpatient (CLI) | payer OTHER, SELFPAY | END | disposition home or self-care (01) | LOC: MFPLAB 13:33 | PROVIDERS: Nurse Practitioner Family; PCP Family Medicine; Visit Provider Family Medicine | DX: E55.9 Vitamin D deficiency, unspecified (principal) | CPT/HCPCS: 36415; 82306 ==

== ENCOUNTER → 2023-01-25 | Outpatient (CLI) | payer OTHER, SELFPAY ==
--- NOTE | 2023-01-25 15:44 | BI_ITS ---
MAMMOGRAPHY - BILATERAL SCREENING REASON FOR EXAM: Female, 62 years old. Routine annual screening examination. PERTINENT HISTORY: Non-contributory. TECHNIQUE: Digital bilateral breast alan (3D mammographic acquisition) in the CC and MLO projections. 2-D mediolateral oblique (MLO) and craniocaudad (CC) views of both breasts were obtained. CAD: Full Field Digital Mammography with Computer Added Detection was performed. COMPARISON: Comparison is made with prior study December 31, 2021 and November 10, 2018. FINDINGS: Breast Composition: The breasts are heterogeneously dense, which may obscure small masses. There are no dominant masses or suspicious calcifications. No other significant abnormalities are identified. There has been no significant change since the prior study. BI/SCRN MAMM (CAD)W/ALAN BILAT IMPRESSION: Stable bilateral screening mammogram. Yearly follow-up mammogram recommended. (A) ASSESSMENT CATEGORY: BIRADS Category 1: Negative. A letter regarding these results will be sent to the patient by the facility within 30 days. Approximately 10% of breast cancers are not detected by mammography. A normal mammogram should not delay biopsy of a clinically suspicious abnormality. [id number] Electronically Signed: Jonathon Erazo MD at 8:46 EDT ,
== END | disposition home or self-care (01) ==
PROVIDERS: PCP Family Medicine; Referring Provider Family Medicine; Visit Provider Family Medicine
DX: Z12.31 Encounter for screening mammogram for malignant neoplasm of breast (principal)
CPT/HCPCS: 77063; 77067

== ENCOUNTER → 2023-09-12 | Outpatient (CLI) | payer OTHER, SELFPAY | END | disposition home or self-care (01) | PROVIDERS: Referring Provider Nurse Practitioner Gerontology; Visit Provider Nurse Practitioner Gerontology | DX: I49.1 Atrial premature depolarization (principal) | CPT/HCPCS: 93225; 93226 ==

== ENCOUNTER → 2023-09-23 | Outpatient (CLI) | payer OTHER, SELFPAY ==
--- NOTE | 2023-09-23 10:31 | STRESSREP_ITS ---
Stress Test Report Exercise myocardial perfusion stress test. 62-year-old lady with a history of chest pain Stress protocol: Resting EKG demonstrates normal sinus rhythm with premature atrial complexes and a rate of 65 bpm resting blood pressure is 134/80 mmHg. The patient exercised according to the regular Andrew protocol for a total duration of 9 minutes at taining a maximum heart rate of 134 bpm which was 84% of maximum predicted heart rate; the maximum workload was 10.1 metabolic equivalents. At rest there were no ST or T wave changes noted to suggest ischemia and at peak exercise upsloping ST changes only were noted which did not meet the criteria for ischemia. No clinical angina was noted the test was terminated due to the target heart rate being achieved/fatigue. The peak blood pressure was 190/100 mmHg. Rate- pressure product was 22,800. Myocardial perfusion protocol. 14.7 mCi of technetium 99m sestamibi was injected at rest. The patient exercised according to regular Andrew protocol for total duration of 9 minutes and at peak exercise 44.8 mCi of technetium 99m sestamibi was injected stress images were obtained stress and rest images were reconstructed in comparing the short axis vertical long and horizontal long axis. Gated images were also obtained. Perfusion SPECT analysis: Review of the stress images demonstrate normal uptake of tracer noted in all areas of the myocardium. The resting images similarly demonstrate normal uptake of tracer noted in all areas of the myocardium. No areas of reversibility are noted to suggest ischemia no previous infarct was noted. Gated SPECT analysis: The gated ejection fraction is 79%. Conclusion: Normal exercise myocardial perfusion stress test at a high workload Preserved ejection fraction.
== END | disposition home or self-care (01) ==
LOC: CVS 06:55
PROVIDERS: Referring Provider Nurse Practitioner Gerontology; Visit Provider Nurse Practitioner Gerontology
DX: R07.9 Chest pain, unspecified (principal)
CPT/HCPCS: 78452; 93017; A9500; A4216

== ENCOUNTER → 2024-02-14 | Outpatient (CLI) | payer OTHER, SELFPAY ==
--- NOTE | 2024-02-14 16:30 | BI_ITS ---
MAMMOGRAPHY - BILATERAL SCREENING REASON FOR EXAM: Female, 63 years old. Routine annual screening examination. PERTINENT HISTORY: Non-contributory. TECHNIQUE: Digital bilateral breast alan (3D mammographic acquisition) in the CC and MLO projections. 2-D mediolateral oblique (MLO) and craniocaudad (CC) views of both breasts were obtained. CAD: Full Field Digital Mammography with Computer Added Detection was performed. COMPARISON: Comparison is made with prior study January 25, 2023 and December 31, 2021. FINDINGS: Breast Composition: The breasts are heterogeneously dense, which may obscure small masses. There are no dominant masses or suspicious calcifications. Stable small bilateral axillary lymph nodes. No other significant abnormalities are identified. There has been no significant change since the prior study. BI/SCRN MAMM (CAD)W/ALAN BILAT IMPRESSION: Stable bilateral screening mammogram. Yearly follow-up mammogram recommended. (A) ASSESSMENT CATEGORY: BIRADS Category 2: Benign. A letter regarding these results will be sent to the patient by the facility within 30 days. Approximately 10% of breast cancers are not detected by mammography. A normal mammogram should not delay biopsy of a clinically suspicious abnormality. [id number] Electronically Signed: Jonathon Erazo MD at 8:30 EST ,
== END | disposition home or self-care (01) ==
LOC: OPBI 16:27
PROVIDERS: PCP Family Medicine; Referring Provider Family Medicine; Visit Provider Family Medicine
DX: Z12.31 Encounter for screening mammogram for malignant neoplasm of breast (principal)
CPT/HCPCS: 77063; 77067

== ENCOUNTER → 2025-03-07 | Outpatient (CLI) | payer OTHER, SELFPAY ==
--- NOTE | 2025-03-07 16:52 | BI_ITS ---
EXAM: SCRN MAMM (CAD)W/ALAN BILAT DATE: 03/07/2025 CLINICAL HISTORY: F, Age 64 y/o , SCREENING TECHNIQUE: Procedure Code: [id number] Modality: MG Procedure: SCRN MAMM (CAD)W/ALAN BILAT COMPARISON: Prior exam(s) dated 02/14/2024, 01/25/2023, 12/31/2021. FINDINGS: TISSUE DENSITY: There are scattered areas of fibroglandular density. Bilateral Breast Mammographic Findings: No significant masses, calcifications or other abnormalities are identified. BI/SCRN MAMM (CAD)W/ALAN BILAT IMPRESSION: There is no mammographic evidence of malignancy. OVERALL FINAL ASSESSMENT BI-RADS 1: NEGATIVE. RECOMMENDATION: Routine annual follow-up in 1 Year Additional Recommendation none A letter with findings and recommendations will be mailed to the patient. Reading Location: [id number]
--- OUTSIDE RECORDS SUMMARY | 2025-03-11 07:24 | XMS RPT_ITS | CCD ---
Author Organization [facility] Care Team Providers Care Marketing Planner Name Role Phone Dr. Jono Pierce Primary Care Provider [phone] Dr. Jono Pierce Referring Provider [phone] Pelon AUDIT TECH, AUDIT TECH-C Rafaela Attending Provider Care Physician, No Primary Referring Provider Un available Dr. Leonard Berg Attending Provider Jose Luis AUDIT TECH, AUDIT TECH-C Kinga Primary Care Provider Jose Luis JI, AUDIT TECH-C Kinga Referring Provider Estephania Carrasquillo DO Primary Care Provider ESTEPHANIA CARRASQUILLO Referring Unavailable ESTEPHANIA CARRASQUILLO Primary Care Unavailable YONG ROSENBERG Attending Unavailable DO Estephania Carrasquillo Primary Care Provider DO Estephania Carrasquillo Referring Provider Pelon JI, MARGY-C Rafaela Attending Provider Unavailable Primary Care Provider UnavailDr. Erma Harris MD Primary Care Provider Dr. Erma Calderon MD Referring Provider Stacie Brenner Attending Provider AFSHAN HARDEN DO Attending UnavailAFSHAN Glover DO Primary Care UnavailErma Harris Referring Unavailable Erma Calderon Primary Care Unavailable Erma Calderon Attending Unavailable Erma Calderon Referring Unavailable Erma Calderon Primary Care Unavailable Stacie Brenner Attending Unavail able Erma Calderon Referring Unavailable Stacie Brenner Attending Unavail Erma Duron Primary Care Unavailable Erma Calderon Primary Care Unavailable Stacie Brenner Attending Unavail Erma Duron Referring Unavailable Allergies Allergy Classification Reported Allergen(s) Allergy Type Date of Onset Reaction(s) Facility (11 sources) Cephalexin Drug Allergy 02-19-20 GI Upset [facility] (9 sources) Diclofenac Drug Allergy 02-19-20 GI Upset [facility] (11 sources) fexofenadine Drug Allergy 02-19-20 [facility] (13 sources) Penicillins; Translations: [Penicillins] Allergy to substance 02-19-20 Other: See Comments [facility] (11 sources) Pseudoephedrine Drug Allergy 02-19-20 [facility] (11 sources) Triamcinolone Drug Allergy 02-19-20 hives [facility] (1 source) carvedilol Drug Allergy 01-18-20 [facility] (1 source) Cephalexin Drug Allergy 01-18-20 [facility] (1 source) fexofenadine Drug Allergy 01-18-20 [facility] (1 source) Losartan Drug Allergy 01-18-20 [facility] (1 source) Pseudoephedrine Drug Allergy 01-18-20 [facility] (1 source) Triamcinolone Drug Allergy 01-18-20 [facility] Medications Current Medications Medication Drug Class(es) Dates Sig (Normalized) Sig (Original) nebivolol 5 mg oral tablet (5 sources) Start: 10-10-2024 take 1 tablet by mouth once daily Nebivolol 5 mg tablet Active 5 mg PO daily 90 October 10, 2024 8:47am Start: 10-10-2024 End: 10-10-2024 take 1 tablet by mouth twice daily Nebivolol 5 mg tablet Discontinued 5 mg PO TWICE A DAY October 10, 2024 8:42am October 10, 2024 8:47am Start: 10-10-2024 End: 10-10-2024 take 1 tablet by mouth twice daily Nebivolol (Bystolic) 2.5 mg tablet Discontinued 2.5 mg PO TWICE A DAY October 10, 2024 8:13am October 10, 2024 8:43am Start: 08-23-2024 End: 10-10-2024 take 1 tablet by mouth once daily Nebivolol (Bystolic) 2.5 mg tablet Discontinued 2.5 mg PO daily 30 August 23, 2024 12:00am October 10, 2024 8:14am Semaglutide (1 source) Start: 10-10-2024 Semaglutide (O zempic) 1 mg/dose (4 mg/3 mL) pen injector Active mg SC October 10, 2024 12:00am Completed/Discontinued Medications Medication Drug Class(es) Dates Sig (Normalized) Sig (Original) 24 hr buPROPion hydrochloride 150 mg extended release oral tablet (2 sources) Aminoketone Start: 04-05-2023 End: 09-06-2023 take 1 tablet by mouth once daily Bupropion Hcl 150 mg tablet extended release 24 hr Discontinued 150 mg PO DAILY April 05, 2023 1:00am September 06, 2023 10:45am carvedilol 3.125 mg oral tablet (2 sources) alpha-Adrenergic Nadiya, beta-Adrenergic Nadiya Start: 08-23-2024 End: 08-23-2024 take 1 tablet by mouth twice daily at mealtime Carvedilol 3.125 mg tablet Discontinued 3.125 mg PO TWICE A DAY August 23, 2024 12:00am August 23, 2024 12:02pm must administer with a meal/food escitalopram 10 mg oral tablet (2 sources) Serotonin Reuptake Inhibitor Start: 09-06-2023 End: 08-23-2024 take 1 tablet by mouth once daily Escitalopram Oxalate (Lexapro) 10 mg tablet Discontinued 10 mg PO DAILY September 06, 2023 12:00am August 23, 2024 11:44am glimepiride 4 mg oral tablet (20 sources) Sulfonylurea Start: 02-18-2021 End: 04-05-2022 take 1 tablet by mouth once daily Glimepiride 4 mg tablet Discontinued 4 mg PO DAILY February 18, 2021 1:00am April 05, 2022 9:43am Start: 10-07-2020 End: 10-08-2020 take 1 tablet by mouth once daily Glimepiride 4 mg tablet Discontinued 4 mg PO DAILY October 07, 2020 12:00am October 08, 2020 2:08pm hydroCHLOROthiazide 12.5 mg / losartan potassium 50 mg oral tablet (6 sources) Thiazide Diuretic, Angiotensin 2 Receptor Nadiya Start: 04-05-2023 End: 08-23-2024 Losartan-Hydrochlorothiazide 50-12.5 mg tablet Discontinued 1 {tbl} PO DAILY 90 3 December 09, 2023 3:13pm August 23, 2024 11:44am levoFLOXacin 750 mg oral tablet (11 sources) Quinolone Antimicrobial Start: 10-08-2020 End: 02-18-2021 take 1 tablet by mouth once daily Levofloxacin 750 mg tablet Discontinued 750 mg PO DAILY October 08, 2020 12:00am February 18, 2021 11:04am metFORMIN hydrochloride 500 mg oral tablet (20 sources) Biguanide Start: 10-07-2020 End: 04-05-2022 take 1 tablet by mouth once daily as needed Metformin 500 mg tablet Discontinued 500 mg PO DAILY as needed February 18, 2021 11:04am April 05, 2022 9:43am 24 hr metoprolol succinate 25 mg extended release oral tablet (4 sources) beta-Adrenergic Nadiya Start: 09-20-2023 End: 08-23-2024 take 1 tablet by mouth once daily Metoprolol Succinate 25 mg tablet extended release 24 hr Discontinued 25 mg PO DAILY 90 December 09, 2023 3:12pm August 23, 2024 11:44am montelukast 10 mg oral tablet (11 sources) Leukotriene Receptor Antagonist Start: 02-18-2021 End: 09-06-2023 take 1 tablet by mouth once daily Montelukast (Singulair) 10 mg tablet Discontinued 10 mg PO DAILY February 18, 2021 1:00am September 06, 2023 10:46am omeprazole 40 mg delayed release oral capsule (11 sources) Proton Pump Inhibitor Start: 10-07-2020 End: 10-08-2020 take 1 capsule by mouth once daily Omeprazole 40 mg capsule,delayed release(DR/EC) Discontinued 40 mg PO DAILY October 07, 2020 12:00am October 08, 2020 2:12pm 0.25 mg, 0.5 mg dose 1.5 ml semaglutide 1.34 mg/ml pen injector (5 sources) Start: 04-05-2022 End: 10-10-2024 Semaglutide (Ozempic) 0.25 m g or 0.5 mg(2 mg/1.5 mL) pen injector Discontinued 0.25 mg SC EVERY WEEK April 05, 2022 1:00am October 10, 2024 8:14am semaglutide (OZE MPIC) 0.25 mg or 0.5 mg(2 mg/1.5 mL) pen Inject 0.25 mg subcutaneously one time a week. 0 Active Comment on above: Inject 0.25 mg subcu taneously one time a week. Problems Active Problems Problem Classification Problem Date Documented Date Episodic/Chronic Cardiac dysrhythmias (3 sources) Premature atrial contraction; Translations: [Atrial premature depolarization] Onset: 01-17-2025 09-06-2023 Chronic Conduction disorders (12 sources) Right bundle branch block; Translations: [Unspecified right bundle-branch block] Onset: 01-17-2025 10-07-2020 Chronic Diabetes mellitus with complications (20 sources) Type II diabetes mellitus uncontrolled; Translations: [Type 2 diabetes mellitus with hyperglycemia] 10-22-2020 Chronic Diabetes mellitus without complication (11 sources) Type 2 diabetes mellitus; Translations: [Type 2 diabetes mellitus without complications] 10-08-2020 Chronic Essential hypertension (16 sources) Essential hypertension; Translations: [Essential (primary) hypertension] Chronic Malaise and fatigue (12 sources) Fatigue; Translations: [Other fatigue] 10-07-2020 Episodic Noninfectious gastroenteritis (11 sources) Chronic diarrhea; Translations: [Noninfective gastroenteritis and colitis, unspecified] 10-08-2020 Episodic Nonspecific chest pain (3 sources) Chest pain; Translations: [Chest pain, unspecified] Onset: 01-17-2025 09-06-2023 Episodic Other and unspecified benign neoplasm (1 source) Hyperplastic polyp of intestine; Translations: [Polyp of colon] Episodic Other bone disease and musculoskeletal deformities (9 sources) Osteopenia; Translations: [Other specified disorders of bone density and structure, unspecified site] 06-29-2021 Episodic Other bone disease and musculoskeletal deformities (4 sources) Other specified disorders of bone density and structure, unspecified site; Translations: [Disorder of bone and cartilage, unspecified] Episodic Other congenital anomalies (6 sources) Congenital hemivertebra; Translations: [Other congenital malformations of spine, not associated with scoliosis] 07-27-2021 Chronic Other congenital anomalies (1 source) Other congenital malformations of spine, not associated with scoliosis; Translations: [Hemivertebra] Chronic Other connective tissue disease (11 sources) Pain in left arm; Translations: [Pain in left arm] 10-08-2020 Episodic Other fractures (9 sources) Fracture of tenth thoracic vertebra; Translations: [Unspecified fracture of T9-T10 vertebra, initial encounter for closed fracture] 06-29-2021 Episodic Other fractures (4 sources) Unspecified fracture of T9-T10 vertebra, initial encounter for closed fracture; Translations: [Closed fracture of dorsal [thoracic] vertebra without mention of spinal cord injury] Episodic Other infections; including parasitic (11 sources) Disorder due to infection; Translations: [Unspecified infectious disease] 10-22-2020 Episodic Other injuries and conditions due to external causes (9 sources) Open wound with complication; Translations: [Other injury of unspecified body region, initial encounter] 10-15-2020 Episodic Other injuries and conditions due to external causes (2 sources) Open wound; Translations: [Other injury of unspecified body region, initial encounter] 10-15-2020 Episodic Other lower respiratory disease (11 sources) Dyspnea; Translations: [Shortness of breath] 10-08-2020 Episodic Other lower respiratory disease (2 sources) Shortness of breath; Translations: [Shortness of breath] Episodic Other nervous system disorders (11 sources) Neuropathy of lower limb; Translations: [Unspecified mononeuropathy of unspecified lower limb] 10-15-2020 Chronic Residual codes; unclassified (11 sources) Obstructive sleep apnea syndrome; Translations: [Obstructive sleep apnea (adult) (pediatric)] 10-08-2020 Chronic Residual codes; unclassified (11 sources) History of colonoscopy; Translations: [Other specified postprocedural states] 10-07-2020 Episodic Comment on above: 01/16/2018 Past or Other Problems Problem Classification Problem Date Documented Da te Episodic/Chronic Other screening for suspected conditions (not mental disorders or infectious disease) (13 sources) Patient encounter status; Translations: [Encounter for screening for malignant neoplasm of colon] Onset: 03-13-2024 Episodic Results Test Name Value Interpretation Reference Range Facility Cardiology Visit Reporton Cardiology Visit Report [facility] [address] [place] [address] OFFICE VISIT Date of Service: 01/17/25 MR#: [id number] Acct: [id number] Name: JOHANA SLATER Rep #: [id number] : 1960 Provider: USMAN Santillan Age/Sex: 64/F Location: [facility] Status: Signed HPI HPI History of Present Illness Details: The patient is a 64-year-old female with HTN, HLD, and incomplete right bundle branch block, presenting for follow-up of blood pressure management. At her last visit, her blood pressure was elevated and she was found to be taking Bystolic incorrectly. Her regimen was adjusted to Bystolic 5 mg nightly. Since then, her home blood pressure readings have generally ranged from 132???133/80 mmHg, with occasional readings as high as 140/83 mmHg. She reports good tolerability of Bystolic at this dose, with no noticeable side effects. She has previously tried multiple antihypertensives, including losartan and HCTZ, which caused excessive sedation and drafter plumbing awakening when taken at night, and prolonged daytime drowsiness when taken in the morning. She also recalls a prior episode of acute GI upset after taking a medication, though she is unsure which one. She reports baseline fatigue and lethargy, which she attributes to poor sleep (averaging 6 hours per night), lack of exercise, and possible allergies. She notes that her fatigue is longstanding and not worsened by her current medication regimen. She previously trialed an antidepressant, which initially improved her energy but later caused emotional blunting, leading to discontinuation. She denies chest pain, dyspnea, or palpitations. She occasionally experiences lightheadedness, which she attributes to allergies and weather changes. She admits to suboptimal hydration. Recent cardiac workup includes a negative stress test for ischemia at high workload in 08/2023, and an echocardiogram in 2020 showing an EF of 55% with stage 1 diastolic dysfunction. 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 Accompanied by: Self Is patient in pain?: No Allergies Penicillins Allergy (Verified 01/17/25 14:02) Anaphylaxis triamcinolone (From Nasacort) Allergy (Verified 01/17/25 14:02) hives carvedilol (From Coreg) Adverse Reaction (Intermediate, Verified 01/17/25 14:15) Abd cramps/diarrhea losartan Adverse Reaction (Intermediate, Verified 01/17/25 14:12) fatigue cephalexin (From Keflex) Adverse Reaction (Verified 01/17/25 14:02) GI Upset fexofenadine (From Anabelle-D) Adverse Reaction (Verified 01/17/25 14:02) fatigue pseudoephedrine (From Anabelle-D) Adverse Reaction (Verified 01/17/25 14:02) fatigue Medications ???Medication ???Instructions ???Recorded ???Confirmed ???Type semaglutide 1 mg/dose (4 mg/3 mL) mg subcut 10/10/24 01/17/25 Histo ry subcutaneous pen injector (Ozempic) nebivolol 10 mg tablet 10 mg PO QDAY #90 tabs 01/17/25 Rx ondansetron 4 mg disintegrating 4 mg PO Q8 PRN nausea 01/17/25 History tablet Ejection fraction %: 55 Have you fallen in the past year?: Yes Nurse's Note: Pt needs Zofran, but when it was sent to the pharmacy, she never received. [facility] Medical History Obstructive sleep apnea Type 2 diabetes mellitus Obesity Essential hypertension Right bundle branch block (RBBB) Surgical History Hx of colonoscopy Family History Father Cancer Social History household members: spouse and family Smoking Status: Never smoker alcohol intake: current alcohol intake frequency: holidays/special occasions only substance use type: does not use caffeine: Yes Type: coffee Number of servings: 3 ROS Const Const: Negative for fatigue, weakness or headache(s) Eyes Eyes: Negative for change in vision ENT ENT: Negative for headache(s), dizziness, Nosebleed/epistaxis or balance problems Cardio Chest Pain: No Palpitations: No Edema: None Resp Respiratory: Negative for SOB with activity GI GI: Positive for nausea (Sometimes. This has been ongoing for a few years. It is random.); Negative vomiting, heartburn or bright, red blood in stools (more content not included)... Normal [facility] Cardiology Visit Reporton Cardiology Visit Report [facility] [address] [place] [address] OFFICE VISIT Date of Service: 10/10/24 MR#: [id number] Acct: [id number] Name: JOHANA SLATER TIANA Rep #: [id number] : 1960 Provider: USMAN Santillan Age/Sex: 64/F Location: [facility] [place] Status: Signed HPI HPI History of Present Illness Details: Patient established with us for shortness of breath. She had a stress test in August 2023 which was negative for ischemia at a high workload. She does have a history of hypertension, hyperlipidemia and incomplete right bundle branch block. From a cardiac standpoint, patient is doing well. She does not have any chest discomfort/heaviness/t ightness. Her exercise tolerance is stable for her age. She does not have any worsening symptoms of shortness of breath. She does not have any orthopnea. She denies PND. She does not have any symptoms of congestive heart failure. She does not have any palpitations that she is aware of. She does not have any lightheadedness or dizziness. She does not have any near- syncope or syncope. She does not have any lower extremity edema. She does not have any symptoms of claudication. 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: No Is patient in pain?: No Allergies Penicillins Allergy (Verified 10/10/24 08:12) Anaphylaxis triamcinolone (From Nasacort) Allergy (Verified 10/10/24 08:12) hives cephalexin (From Keflex) Adverse Reaction (Verified 10/10/24 08:12) GI Upset fexofenadine (From Anabelle-D) Adverse Reaction (Verified 10/10/24 08:12) fatigue pseudoephedrine (From Anabelle-D) Adverse Reaction (Verified 10/10/24 08:12) fatigue Medications ???Medication ???Instructions ???Recorded ???Confirmed ???Type nebivolol 5 mg tablet 5 mg PO QDAY #90 tabs 10/10/24 Rx semaglutide 1 mg/dose (4 mg/3 mL) mg subcut 10/10/24 10/10/24 Histo ry subcutaneous pen injector (Ozempic) Ejection fraction %: 55 Have you fallen in the past year?: Yes (Slip and fall) PFSH Medical History Obstructive sleep apnea Type 2 diabetes mellitus Obesity Essential hypertension Right bundle branch block (RBBB) Surgical History Hx of colonoscopy Family History Father Cancer Social History household members: spouse and family Smoking Status: Never smoker alcohol intake: current alcohol intake frequency: holidays/special occasions only substance use type: does not use caffeine: Yes Type: coffee Number of servings: 3 ROS Const Const: Negative for fatigue or weakness Eyes Eyes: Negative for change in vision ENT ENT: Negative for dizziness or balance problems Cardio Chest Pain: No Palpitations: No Edema: Bilateral (Related to broken toes) Resp Respiratory: Negative for SOB with activity, SOB at rest or SOB orthopnea SOB lying down GI GI: Negative nausea or heartburn Musc Musc: Negative for balance problems Neuro Neuro: Negative for dizziness, lightheadedness, near syncope, syncope or weakness Endo Endo: Negative for fatigue Cardiology Exam Const Appearance: cooperative, no acute distress and well developed Orientation: alert, awake and oriented x3 Head Head: normocephalic and atraumatic Mouth: moist mucous membranes Eyes General: appearance normal, both eyes and all related structures Conjunctivae: conjunctivae normal Pupils: PERRL EOM: EOM intact bilaterally Neck Neck: normal visual inspection, no lymphadenopathy and no JVD Carotids: Negative bruit Neck Mass: Negative Neck mass Chest Chest inspection: normal inspection of the chest and symmetric chest movement Auscultation: Bilateral: Clear to Auscultation Cardio Palpation: normal PMI Rate: regular rate Rhythm: regular rhythm Heart sounds: S1 normal and S2 normal; Negative rub, gallop or murmur GI GI: normal to inspection, soft, no hepatosplenomegaly and bowel sounds present; Negative tender Neuro General: patient alert, patient awake, patient oriented x3, CN's II-XI intact bilaterally and moves all extremities Extremities Pulses: Normal: Right Posterior Tibial Pulse, Left Posterior Tibial Pulse, Right Radial Pulse and Left Radial Pulse Lower Extremity Edema: None: Bilateral Psych Psychological: normal affect Supplemental Info Supplemental Information Echocardiogram fr (more content not included)... Normal [facility] XR FOOT MINIMUM 3 VIEWS LEFT on 09-14-2024 XR FOOT MINIMUM 3 VIEWS LEFT ORIGINAL EXAMINATION: THREE XRAY VIEWS OF THE LEFT FOOT; THREE XRAY VIEWS OF THE RIGHT FOOT09/13/2024 10:07 am COMPARISON: None HISTORY: ORDERING SYSTEM PROVIDED HISTORY: Reason for Exam: CONTUSION OF LEFT FOOT INITAL ENCOUNTER CONTUSION OF RIGHT FOOT INITIAL ENCOUNTER pt co bilateral foot pain after accidentally walking into things over the last 2 weeks. swelling and bruising., FINDINGS: There is a nondisplaced transverse fracture through the proximal portion of the left 4th proximal phalanx without articular extension or comminution. No other fracture or dislocation in the left foot. There is an oblique mildly displaced fracture of the right 5th proximal phalanx without articular extension. No other fracture or dislocation in the right foot. No radiopaque foreign body in either foot. IMPRESSION: Fractures of the right 5th proximal phalanx and the left 4th proximal phalanx. Interpreted by: Harpreet Mccoy MD Preliminary Report By: Harpreet Mccoy MD Electronically signed By Harpreet Mccoy MD Dictated Date: 09/14/2024 2:28:25 PM Prelim Date: 09/14/2024 2:29:57 PM Sign Date: 09/14/2024 2:29:57 PM Ordering Provider: AFSHAN ESTEBAN XR FOOT MINIMUM 3 VIEWS [facility] 09-14-2024 XR FOOT MINIMUM 3 VIEWS RIGHT ORIGINAL EXAMINATION: THREE XRAY VIEWS OF THE LEFT FOOT; THREE XRAY VIEWS OF THE RIGHT FOOT09/13/2024 10:07 am COMPARISON: None HISTORY: ORDERING SYSTEM PROVIDED HISTORY: Reason for Exam: CONTUSION OF LEFT FOOT INITAL ENCOUNTER CONTUSION OF RIGHT FOOT INITIAL ENCOUNTER pt co bilateral foot pain after accidentally walking into things over the last 2 weeks. swelling and bruising., FINDINGS: There is a nondisplaced transverse fracture through the proximal portion of the left 4th proximal phalanx without articular extension or comminution. No other fracture or dislocation in the left foot. There is an oblique mildly displaced fracture of the right 5th proximal phalanx without articular extension. No other fracture or dislocation in the right foot. No radiopaque foreign body in either foot. IMPRESSION: Fractures of the right 5th proximal phalanx and the left 4th proximal phalanx. Interpreted by: Harpreet Mccoy MD Preliminary Report By: Harpreet Mccoy MD Electronically signed By Harpreet Mccoy MD Dictated Date: 09/14/2024 2:28:25 PM Prelim Date: 09/14/2024 2:29:57 PM Sign Date: 09/14/2024 2:29:57 PM Ordering Provider: AFSHAN FELIPEMINI WANGKACIE Cardiology Visit Reporton Cardiology Visit Report [facility] [address] [place], [place] [address] OFFICE VISIT Date of Service: 08/23/24 MR#: [id number] Acct: [id number] Name: JOHANA SLATER Rep #: [id number] : 1960 Provider: USMAN Santillan Age/Sex: 63/F Location: [facility] [place] Status: Signed HPI HPI History of Present Illness Details: Patient established with us for shortness of breath. She had a stress test in August 2023 which was negative for ischemia at a high workload. She does have a history of hypertension, hyperlipidemia and incomplete right bundle branch block. Pt stopped her BP medication, she did not feel well on it. She was having dizziness, fatigue for 2- 3 hours after she took her medications. BP was in the high to normal range. She has not had any chest pain or worsening SOB. Intake Vital Signs 12/09/23 15:00 08/23/24 09:26 08/23/24 11:58 Height 5 ft 2.5 in 5 ft 2.5 in Weight: 204 lb BMI 36.7 BP 146/96 H 130/100 H Blood Pressure Location Lt brachial Position Sitting Respiration 18 Pulse 82 Pulse Source Monitor Pulse Oximetry (%) 98 Intake Visit Reasons: 6 M FU [employer] Supervisor Required: No Is patient in pain?: No Allergies Penicillins Allergy (Verified 08/23/24 11:43) Anaphylaxis triamcinolone (From Nasacort) Allergy (Verified 08/23/24 11:43) hives cephalexin (From Keflex) Adverse Reaction (Verified 08/23/24 11:43) GI Upset fexofenadine (From Anabelle-D) Adverse Reaction (Verified 08/23/24 11:43) fatigue pseudoephedrine (From Anabelle-D) Adverse Reaction (Verified 08/23/24 11:43) fatigue Medications ???Medication ???Instructions ???Recorded ???Confirmed ???Type semaglutide 0.25 mg or 0.5 mg (2 0.25 mg subcut QWEEK 04/05/2207/27 History mg/1.5 mL) subcutaneous pen injector (Ozempic) nebivolol 2.5 mg tablet (Bystolic) 2.5 mg PO QDAY #30 tabs 08/23/24 08/23/24 Rx Ejection fraction %: 55 Have you fallen in the past year?: Yes PFSH Medical History Obstructive sleep apnea Type 2 diabetes mellitus Obesity Essential hypertension Right bundle branch block (RBBB) Surgical History Hx of colonoscopy Family History Father Cancer Social History household members: spouse and family Smoking Status: Never smoker alcohol intake: current alcohol intake frequency: holidays/special occasions only substance use type: does not use caffeine: Yes Type: coffee Number of servings: 3 ROS Const Const: Negative for fatigue, weakness, headache(s) or frequent falls Eyes Eyes: Negative for blurry vision ENT ENT: Negative for headache(s), dizziness or Nosebleed/epistaxis Cardio Chest Pain: No Palpitations: No Edema: None Muscle aches with walking: None Resp Respiratory: Negative for SOB with activity, SOB at rest or SOB orthopnea SOB lying down GI GI: Negative nausea, vomiting, heartburn, bright, red blood in stools or black,tarry stools : Negative for hematuria Neuro Neuro: Negative for dizziness, lightheadedness, near syncope, syncope, frequent falls, headache(s), weakness or blurry vision Endo Endo: Negative for fatigue Cardiology Exam Const Appearance: cooperative, no acute distress and well developed Orientation: alert, awake and oriented x3 Head Head: normocephalic and atraumatic Mouth: moist mucous membranes Eyes General: appearance normal, both eyes and all related structures Conjunctivae: conjunctivae normal Pupils: PERRL EOM: EOM intact bilaterally Neck Neck: normal visual inspection, no lymphadenopathy and no JVD Carotids: Negative bruit Neck Mass: Negative Neck mass Chest Chest inspection: normal inspection of the chest and symmetric chest movement Auscultation: Bilateral: Clear to Auscultation Cardio Palpation: normal PMI Rate: regular rate Rhythm: regular rhythm Heart sounds: S1 normal and S2 normal; Negative rub, gallop or murmur GI GI: normal to inspection, soft, no hepatosplenomegaly and bowel sounds present; Negative tender Neuro General: patient alert, patient awake, patient oriented x3, CN's II-XI intact bilaterally and moves all extremities Extremities Pulses: Normal: Right Posterior Tibial Pulse, Left Posterior Tibial Pulse, Right Radial Pulse and Left Radial Pulse Lower Extremity Edema: None: Bilateral Psych Psychological: normal affect Supplemental Info Supplemental Information Echocardiogram from 10/22/2020: Interpretation Summary Normal LV size. Left ventricular systolic function is normal. The estimated ejection fraction is 55 %. Stage 1 (more content not included)... Normal [facility] SCRN MAMM (CAD)W/ALAN BILATo n 02-14-2024 SCRN MAMM (CAD)W/ALAN BILAT [facility] Imaging Services [address] [place] [address] SCRN MAMM (CAD)W/ALAN BILAT MR#: [id number] Acct: [id number] Name: JOHANA SLATER Rep #: [id number] : 1960 F 63 From: Jonathon valle MD PCP: Dr. Erma Calderon MD Status: [facility] Study: SCRN MAMM (CAD)W/ALAN BILAT Date of Exam: 01/26 12/19 Exam# [id number] Ordering Dr: Erma Calderon MD [id number] MAMMOGRAPHY - BILATERAL SCREENING REASON FOR EXAM: Female, 63 years old. Routine annual screening examination. PERTINENT HISTORY: Non-contributory. TECHNIQUE: Digital bilateral breast alan (3D mammographic acquisition) in the CC and MLO projections. 2-D mediolateral oblique (MLO) and craniocaudad (CC) views of both breasts were obtained. CAD: Full Field Digital Mammography with Computer Added Detection was performed. COMPARISON: Comparison is made with prior study January 25, 2023 and December 31, 2021. FINDINGS: Breast Composition: The breasts are heterogeneously dense, which may obscure small masses. There are no dominant masses or suspicious calcifications. Stable small bilateral axillary lymph nodes. No other significant abnormalities are identified. There has been no significant change since the prior study. BI/SCRN MAMM (CAD)W/ALAN BILAT IMPRESSION: Stable bilateral screening mammogram. Yearly follow-up mammogram recommended. (A) ASSESSMENT CATEGORY: BIRADS Category 2: Benign. A letter regarding these results will be sent to the patient by the facility within 30 days. Approximately 10% of breast cancers are not detected by mammography. A normal mammogram should not delay biopsy of a clinically suspicious abnormality. [id number] Electronically Signed: Jonathon Erazo MD at 8:30 EST , CC: Dr. Erma Calderon MD [place] Supervisor: Signed [facility] 36on 12-07-2023 36 Name of caller: Johana Contact phone number: [phone] Relationship to Patient: patient Provider: Dr. Calderon Practice: [facility] Chief Complaint/Reason for Call: Patient states that they received a notice from their pharmacy that they are waiting on Dr. Calderon to approve a 90-day prescription for AML but they are not sure what this is for. Patient also states that they got a new dose of Ozempic and they took all 4 doses of this and their pharmacy had called to renew this prescription but then their pharmacy came back and said that they cannot renew this until January. Patient states that they are not sure what is going on with that but they did alright with this new dose. Patient is requesting a call back. Please advise. Best time of day caller can be reached: Any Patient advised that office/PCP has 24-48 business hours to return their call: Yes [facility] No Panel InformationOrdered By: Es Wadsworth on 10-18-2022 Vitamin D 25-Hydroxy 39.0 ng/mL [facility] Comment on above: Vitamin D 25(OH) Sta tus Range Deficiency <20 ng/mL (50nmol/L) Insufficiency 20 - 30 ng/mL (50 - 75 nmol/L) Sufficiency 30 - 100 ng/mL (75 - 250 nmol/L) Toxicity >100 ng/mL (>250 nmol/L) Absolute lymphocyte countOrd ered By: Rafaela Bird on 04-09-2022 Lymphocytes Auto (Unsp spec) [#/Vol] 3.23 10*3/uL 0.83-4.51 [facility] Basophil percentageOrdered B y: Rafaela Bird on 04-09-2022 Basophils/100 WBC (Bld) 0.9 % 0-1 [facility] Chloride [Moles/Vol] 107 mmol/L 98-107 [facility] Eosinophils/100 WBC (Bld) 1.2 % 0-5 [facility] Glucose [Mass/Vol] 166 mg/dL 74-106 [facility] Comment on above: Fasting Glucose resu lt greater than or equal to 126 mg/dL suggests DIABETES MELLITUS per A.D.A. criteria. Neutrophils (Bld) [#/Vol] 4.9 10*3/uL 2.0-7.7 [facility] Neutrophils/100 WBC (Bld) 55.2 % 47-70 [facility] Potassium [Moles/Vol] 3.9 mmol/L 3.5-5.1 [facility] Sodium [Moles/Vol] 139 mmol/L 136-145 [facility] WBC (Bld) [#/Vol] 9.0 10*3/uL 4.4-11.0 [facility] Blood erythrocytes count (nu mber/volume)Ordered By: Rafaela Bird on 04-09-2022 RBC (Bld) [#/Vol] 5.39 10*6/uL 4.2-5.4 [facility] Blood hemoglobin measurement (mass/volume)Ordered By: Rafaela Bird on 04-09-2022 Hemoglobin (Bld) [Mass/Vol] 15.8 g/dL 12.0-15.0 [facility] Blood lymphocytes/100 leukoc ytesOrdered By: Rafaela Bird on 04-09-2022 Lymphocytes/100 WBC (Bld) 36.1 % 19-41 [facility] Blood monocytes/100 leukocyt esOrdered By: Rafaela Bird on 04-09-2022 Monocytes/100 WBC (Bld) 6.4 % 0-10 [facility] Blood platelet mean volumeOr dered By: Rafaela Bird on 04-09-2022 Platelet mean volume (Bld) [Entitic vol] 10.5 fL 6.2-12.0 [facility] Determination of erythrocyte mean corpuscular volume (MCV)Ordered By: Rafaela Bird on 04-09-2022 MCV (RBC) [Entitic vol] 82.7 fL 81-99 [facility] Hematocrit Auto (Bld) [Volum e fraction]Ordered By: Rafaela Bird on 04-09-2022 Hematocrit (Bld) [Volume fraction] 44.6 % 37-47 [facility] Laboratory - Chemistry and C hemistry - challengeOrdered By: Rafaela Bird on 04-09-2022 CO2 [Moles/Vol] 23.0 mmol/L 21.0-32.0 [facility] Free T4 [Mass/Vol] 0.87 ng/dL 0.76-1.46 [facility] Natriuretic peptide B (Bld) [Mass/Vol] 10.2 pg/mL 0-100 [facility] Urea nitrogen/Creatinine [Mass ratio] 13.8 mg/mg 10-20 [facility] Laboratory - Hematology and Cell countsOrdered By: Rafaela Bird on 04-09-2022 Erythrocyte distribution width (RBC) [Entitic vol] 38.3 fL 35.1-43.9 [facility] Erythrocyte distribution width (RBC) [Ratio] 12.6 % 11.6-14.6 [facility] Immature granulocytes/100 WBC (Bld) 0.200 % 0.0-0.9 [facility] Comment on above: IG% - Immature Granu locytes (promyelocytes, myelocytes and metamyelocytes) > 1% indicates that a LEFT SHIFT is Present. MCH (RBC) [Entitic mass] 29.3 pg 27.0-32.0 [facility] Nucleated RBC/100 WBC (Bld) [Ratio] 0 % 0-5 [facility] MCHC Auto (RBC) [Mass/Vol]Or dered By: Rafaela Bird on 04-09-2022 MCHC (RBC) [Mass/Vol] 35.4 g/dL 32-36 [facility] No Panel InformationOrdered By: Rafaela Bird on 04-09-2022 Estimated GFR (MDRD) Amer 86 mL/min >60 [facility] Comment on above: GFR Calc Estimated GFR (MDRD) Non-Af Amer 71 mL/min >60 [facility] Comment on above: Non- GFR Calc Free Triiodothyronine (T3) pg/dL 2.6 pg/mL 2.18-3.98 [facility] Thyroid Stimulating Hormone (TSH) 1.76 uIU/mL 0.358-3.74 [facility] Vitamin D 25-Hydroxy 13.0 ng/mL [facility] Comment on above: Vitamin D 25(OH) Sta tus Range Deficiency <20 ng/mL (50nmol/L) Insufficiency 20 - 30 ng/mL (50 - 75 nmol/L) Sufficiency 30 - 100 ng/mL (75 - 250 nmol/L) Toxicity >100 ng/mL (>250 nmol/L) Platelets bldOrdered By: Daryl Bird on 04-09-2022 Platelets (Bld) [#/Vol] 314 10*3/uL 150-450 [facility] Serum or plasma calcium bernabe urement (mass/volume)Ordered By: Rafaela Bird on 04-09-2022 Calcium [Mass/Vol] 9.4 mg/dL 8.5-10.1 [facility] Serum or plasma creatinine m easurement (mass/volume)Ordered By: Rafaela Bird on 04-09-2022 Creatinine [Mass/Vol] 0.87 mg/dL 0.55-1.02 [facility] Comment on above: The validity of the calculated GFR & GFRAA in patients over 70 years has not been determined. Clinical correlation is essential. Serum or plasma urea nitroge n measurement (mass/volume)Ordered By: Rafaela Bird on 04-09-2022 Urea nitrogen [Mass/Vol] 12 mg/dL 7-18 [facility] Thin prep Papanicolaou smear with manual screeningOrdered By: Rafaela Bird on 04-09-2022 Thin prep Papanicolaou smear with manual screening 9 5-15 [facility] CNOVon 02-23-2022 CNOV Office Visit (GENSWS ) CATHERINE SLATERSHERYL Ambrocio ([id number]) 1960 F Date Time Provider Department 02/23/22 8:30 AM YONG ROSENBERG During your visit today, we recorded the following information about you: Temperature Pulse Blood pressure Weight 98 degrees 97/minute 136/88 96.2 kg Height 1.575 m Yong Rosenberg PA-C 03/02/2022 12:46 PM Signed HISTORY AND PHYSICAL Johana Ambrocio Nohemy 1960 REFERRING PHYSICIAN: Estephania aCrrasquillo DO CHIEF COMPLAINT: Consult (colonoscopy) HPI: The patient is a 61 year old female referred for endoscopy. Johana notes no colon complaints. Patient denies any change in bowel habits, weight changes, blood in stools, black tarry stools or abdominal pain. Denies family history of colon issues. The patient notes no upper GI complaints. Johana has undergone prior endoscopy. Last colonoscopy performed by Dr. Garcia at [facility] on 01/16/18. Patient had two recto-sigmoid colon polyps removed and three year follow-up was recommended. Records reviewed, per pathology report from [facility] final pathology showed hyperplastic polyp tissue. PAST MEDICAL HISTORY Diagnosis Date Diabetes mellitus (HCC) 03/2019 PAST SURGICAL HISTORY Procedure Laterality Date COLONOSCOPY 01/16/2018 repeat in 3 years EXT HYSTERECTOMY,W/PARTIAL VAGINECTO 03/2015 Current Outpatient Medications Medication Sig semaglutide (OZEMPIC) 0.25 mg or 0.5 mg(2 mg/1.5 mL) pen Inject 0.25 mg subcutaneously one time a week. No current facility-administered medications for this visit. ALLERGIES: Penicillins PERSONAL HISTORY: Social History Tobacco Use Smoking status: Never Smokeless tobacco: Never Vaping Use Vaping Use: Never used Substance Use Topics Alcohol use: Yes Comment: couple times a month Drug use: Never FAMILY HISTORY: FAMILY HISTORY Problem Relation Age of Onset Cancer Father REVIEW OF SYMPTOMS: The review of systems data was entered by the nurse and reviewed by pa Nursing Notes: Ashly Peterson RN 02/23/2022 9:54 AM Signed REVIEW OF SYSTEMS: General: The patient NOTES fatigue, denies weight loss, NOTES weight gain, denies feeling hot, and denies feelings of cold. Eyes: The patient denies glaucoma, denies eye injury/surgery, does not wear glasses or contacts. Ear/Nose/Throat: The patient NOTES allergies, denies hayfever, denies ear infections, and denies bloody noses. Cardiovascular: The patient denies chest pain, denies heart disease, denies high blood pressure,denies cardiac stent, denies prior heart attack, denies irregular heart beat, denies high cholesterol, denies poor circulation, denies heart failure, other cardiac issues, denies claudication, NOTES cold feet, denies peripheral arterial stent. Respiratory: The patient denies tuberculosis, denies pneumonia, denies frequent cough, denies pulmonary embolism, denies shortness of breath, and denies coughing up blood. Gastrointestinal: The patient denies difficulty swallowing, denies acid reflux, denies ulcers, denies vomiting, denies jaundice/hepatitis, denies gallbladder problems, denies black or tarry stools, denies hemorrhoids, denies bleeding from rectum, denies diverticulitis, denies constipation, denies diarrhea, denies loss of stool control, and denies hernias. Kidney/Bladder: The patient denies kidney stones, denies urine infections, and denies bloody urine. Skin: The patient denies a history of skin cancer, denies bleeding/changing moles, and denies a history of skin rash. Neurologic: The patient denies a history of epilepsy/convulsions, NOTES headaches, denies head/spinal injuries, and denies stroke/TIA. Psychiatric: The patient denies psychiatric medications, denies depression, and denies voices, denies substance abuse. Endocrine: The patient denies thyroid disorders, NOTES diabetes, and denies hormonal problems. Hematologic: The patient denies a history of bruising, denies bleeding, and denies anemia, denies blood clots. Infections: The patient NOTES a history of measles and mumps, denies rheumatic fever, and denies sexually transmitted diseases. Musculoskeletal: The patient denies back pain/injury, NOTES back problems, denies sciatica, denies knee/foot trouble, denies arthritis, or denies gout. When was patient's last Mammogram screening? 01/2022 Last Colonoscopy: 01/16/2018 Ashly Peterson RN I have confirmed and edited as necessary, the PFSH and ROS obtained by others. Yong Rosenberg PA-C PHYSICAL EXAMINATION: General: The patient is 61 year old female, well nourished, well hydrated in no acute distress. The patient is oriented to time, place, and person. VITALS: Blood pressure 136/88, pulse 97, temperature 36.7 ?C (98 ?F), height 157.5 cm (5' 2), weight 96.2 kg (212 lb), SpO2 98 %. Body mass index is 38.78 kg/m?. HEENT: Normal cephalic, ataumat (more content not included)... Normal [facility] Vital Signs Date Time Vital Sign Value Performing Clinician Facility 10-10-2024 08:11-0400 Body height 158.[address] Erma Calderon MD Work Phone: [facility] 10-10-2024 08:11-0400 Body mass index (BMI) [Ratio] 36.7 kg/m2 Dr. Erma Calderon MD Work Phone: [facility] 10-10-2024 08:11-0400 Body weight 92.[address] Erma Calderon MD Work Phone: [facility] 10-10-2024 08:11-0400 Diastolic blood pressure 87 mm[Hg] Dr. Erma Calderon MD Work Phone: [facility] 10-10-2024 08:11-0400 Heart rate 62 /min Dr. Erma Calderon MD Work Phone: [facility] 10-10-2024 08:11-0400 Respiratory rate 16 /min Dr. Erma Calderon MD Work Phone: [facility] 10-10-2024 08:11-0400 Systolic blood pressure 133 mm[Hg] Dr. Erma Calderon MD Work Phone: [facility] 08-23-2024 11:58-0400 Diastolic blood pressure 100 mm[Hg] Dr. Erma Calderon MD Work Phone: [facility] 08-23-2024 11:58-0400 Systolic blood pressure 130 mm[Hg] Dr. Erma Caldeorn MD Work Phone: [facility] 08-23-2024 09:26-0400 Body height 158.[address] Erma Calderon MD Work Phone: [facility] 08-23-2024 09:26-0400 Body mass index (BMI) [Ratio] 36.7 kg/m2 Dr. Erma Calderon MD Work Phone: [facility] 08-23-2024 09:26-0400 Body weight 92.[address] Erma Calderon MD Work Phone: [facility] 08-23-2024 09:26-0400 Heart rate 82 /min Dr. Erma Calderon MD Work Phone: [facility] 08-23-2024 09:26-0400 Respiratory rate 18 /min Dr. Erma Calderon MD Work Phone: [facility] 08-23-2024 09:26-0400 SaO2% (BldA) [Mass fraction] 98 % Dr. Erma Calderon MD Work Phone: [facility] 04-05-2022 09:00-0500 Diastolic blood pressure 96 mm[Hg] DO Estephania Foreign Work Phone: [facility] 04-05-2022 09:00-0500 Systolic blood pressure 136 mm[Hg] DO Estephania Foreign Work Phone: [facility] 04-05-2022 08:41-0500 Body height 158.75 cm DO Estephania Foreign Work Phone: [facility] 04-05-2022 08:41-0500 Body mass index (BMI) [Ratio] 38 kg/m2 DO Estephania Foreign Work Phone: [facility] 04-05-2022 08:41-0500 Body weight 95.7 kg DO Estephania Foreign Work Phone: [facility] 04-05-2022 08:41-0500 Heart rate 91 /min DO Estephania Foreign Work Phone: [facility] 04-05-2022 08:41-0500 Respiratory rate 16 /min DO Estephania Carrasquillo Work Phone: [facility] 02-23-2022 09:13-0500 Body height 157.5 cm Yong Choudrant PA-C Work Phone: [facility] 02-23-2022 09:13-0500 Body temperature 98.01 [degF] Yong Shakira PA-C Work Phone: [facility] 02-23-2022 09:13-0500 Body weight 96.16 kg Yong Choudrant PA-C Work Phone: [facility] 02-23-2022 09:13-0500 Diastolic blood pressure 88 mm[Hg] Yong Choudrant PA-C Work Phone: [facility] 02-23-2022 09:13-0500 Heart rate 97 /min Yong Shakira PA-C Work Phone: [facility] 02-23-2022 09:13-0500 SaO2% (BldA) [Mass fraction] 98 % Yong Shakira PA-C Work Phone: [facility] 02-23-2022 09:13-0500 Systolic blood pressure 136 mm[Hg] Yong Shakira PA-C Work Phone: [facility] 09-09-2021 09:13-0400 Body height 158.75 cm No Primary Care Physician [facility] Work Phone: 09-09-2021 09:13-0400 Body weight 90.26 kg No Primary Care Physician [facility] Work Phone: 06-29-2021 09:36-0400 Body weight 89.81 kg No Primary Care Physician [facility] Work Phone: 06-29-2021 09:28-0400 Body mass index (BMI) [Ratio] 36 kg/m2 No Primary Care Physician [facility] Work Phone: 06-29-2021 09:28-0400 Body weight 89.35 kg No Primary Care Physician [facility] Work Phone: 06-29-2021 09:28-0400 Body height 157.48 cm No Primary Care Physician [facility] Work Phone: 06-29-2021 09:28-0400 Body mass index (BMI) [Ratio] 36 kg/m2 No Primary Care Physician [facility] Work Phone: 06-29-2021 09:28-0400 Body weight 89.35 kg No Primary Care Physician [facility] Work Phone: 06-24-2021 18:55-0400 Body height 158.75 cm [facility] Work Phone: 06-24-2021 18:55-0400 Body weight 89.81 kg [facility] Work Phone: 06-03-2021 16:47-0500 Body height 158.[address] Jono Pierce Work Phone: [facility] Work Phone: 06-03-2021 16:47-0500 Body weight 89.[address] Jono Pierce Work Phone: [facility] Work Phone: 02-18-2021 07:31-0500 Body weight 98.[address] Jono Pierce Work Phone: [facility] Work Phone: 02-18-2021 07:31-0500 Diastolic blood pressure 92 mm[Hg] Dr. Jono Pierce Work Phone: [facility] Work Phone: 02-18-2021 07:31-0500 Heart rate 73 /min Dr. Jono Pierce Work Phone: [facility] Work Phone: 02-18-2021 07:31-0500 Respiratory rate 18 /min Dr. Jono Pierce Work Phone: [facility] Work Phone: 02-18-2021 07:31-0500 SaO2% (BldA) [Mass fraction] 92 % Dr. Jono Pierce Work Phone: [facility] Work Phone: 02-18-2021 07:31-0500 Systolic blood pressure 137 mm[Hg] Dr. Jono Pierce Work Phone: [facility] Work Phone: 10-08-2020 08:48-0400 Body mass index (BMI) [Ratio] 40.6 kg/m2 Dr. Jono Pierce Work Phone: [facility] Work Phone: Encounters Encounter Date Encounter Type Care Provider Facility Start: 01-17-2025 End: 01-17-2025 ambulatory [facility] Facility:[facility] Start: 10-10-2024 End: 10-10-2024 Patient encounter procedure Stacie Cazares [facility] Work Phone: Start: 10-10-2024 End: 10-10-[address] Erma Calderon MD Work Phone: -[facility] Start: 09-13-2024 End: 09-13-2024 ambulatory AFSHAN HARDEN DO Facility:A Start: 08-23-2024 End: 08-23-2024 Patient encounter procedure Stacie Cazares [facility] Work Phone: Start: 08-23-2024 End: 08-23-[address] Erma Calderon MD Work Phone: [facility] Work Phone: Start: 02-14-2024 End: 02-14-2024 ambulatory Erma Calderon Facility:[facility] Start: 12-07-2023 End: 12-07-2023 Telephone encounter Erma Calderon MD Work Phone: [facility] Clinical Communication Comment on above: Medication Problem Start: 01-25-2023 End: 01-25-2023 ambulatory [facility] Work Phone: Start: 01-25-2023 End: 01-25-2023 Patient encounter procedure [facility]-Outpatient Breast Imaging Work Phone: Start: 10-18-2022 End: 10-18-2022 Patient encounter procedure [facility]-Laboratory, [facility] Start: 04-09-2022 End: 04-09-2022 ambulatory DO Estephania Carrasquillo Work Phone: [facility] Work Phone: Start: 04-09-2022 End: 04-09-2022 Patient encounter procedure DO Estephania Foreign Work Phone: [facility]-Laboratory Start: 04-05-2022 End: 04-05-2022 Patient encounter procedure DO Estephania Carrasquillo Work Phone: [facility] Start: 02-23-2022 End: 02-23-2022 ambulatory ESTEPHANIA CARRASQUILLO Facility:[facility] Start: 02-23-2022 End: 02-23-2022 Patient encounter procedure Yong Rosenberg PA-C Work Phone: General Surgery Comment on above: Hyperplastic polyp o f sigmoid colon (Primary Dx); Encounter for screening for malignant neoplasm of colon Start: 12-31-2021 End: 12-31-2021 ambulatory [facility] Work Phone: Start: 12-31-2021 End: 12-31-2021 Patient encounter procedure [facility]-Outpatient Breast Imaging Start: 09-09-2021 End: 09-24-2021 Discharged Recurring No Primary Care Physician [facility]-Diabetic Clinic Start: 08-13-2021 End: 08-13-2021 Discharged Recurring No Primary Care Physician [facility]-Physical Therapy Start: 07-27-2021 End: 07-27-2021 Patient encounter procedure No Primary Care Physician [facility] Start: 07-13-2021 End: 07-13-2021 Patient encounter procedure No Primary Care Physician [facility]-MRI - [facility] Start: 06-29-2021 End: 06-29-2021 Patient encounter procedure No Primary Care Physician [facility] Start: 06-29-2021 End: 07-25-2021 Discharged [facility]ring [facility] Start: 06-29-2021 Registered Recurring No Primar y Care Physician [facility]Diabetic Clinic Start: 06-24-2021 End: 06-25-2021 [facility] Start: 06-24-2021 End: 06-24-2021 Patient encounter procedure [facility]-Outpatient Bone Densitometry Start: 06-08-2021 End: 06-08-[address] Jono Pierce Work Phone[facility] Start: 06-03-[address] [facility] Pierce [facility] Start: 02-18-2021 End: 02-18-[address] Jono Pierce Work Phone: [facility] Procedures Date Procedure Procedure Detail Performing Clinician Start: 01-25-2023 Screening mammography Start: 12-31-2021 Screening mammography Start: 07-13-2021 MRI of thoracic spine N o Primary Care Physician Start: 06-24-2021 Dual energy X-ray absorptiometry Start: 06-08-2021 Radiography of thora cic spine Dr. Jono Pierce Work Phone: Start: 01-25-2018 Colonoscopy Yong velazquez PA-C Work Phone: Plan of Treatment Date Care Activity Detail Author Start: 01-26-2028 Colonoscopy COLONOSCOPY [facility] Start: 01-26-2028 COLORECTAL CANCER SCREENING COLORECTAL CANCER SCREENING [facility] Start: 11-27-2023 COVID-19 Vaccine ( season) COVID-19 Vaccine () [facility] Start: 11-27-2023 Influenza vaccination Influenza Vaccine (#1) [facility] Start: 11-26-2021 Influenza vaccination INFLUENZA (#1) [facility] Start: 2021 RSV Immunization aged 60 or older (1 - 1-dose 60+ series) RSV Immunization aged 60 or older (1 - 1-dose 60+ series) [facility] Start: 03-28-2021 DEPRESSION ASSESSMENT DEPRESSION ASSESSMENT [facility] Start: 09-04-2020 COVID-19 VACCINE (4 - Booster) COVID-19 VACCINE (4 - Booster) [facility] Start: 09-27-2011 SHINGRIX VACCINE (1 of 2) SHINGRIX VACCINE (1 of 2) [facility] Start: 09-27-2011 Zoster Vaccines (1 of 2) Zoster Vaccines (1 of 2) [facility] Start: 2006 COLOGUARD (FIT-DNA) COLOGUARD (FIT-DNA) [facility] Start: [address] COLONOGRAPHY [facility] Start: 2006 DIABETES SCREEN DIABETES SCREEN [facility] Start: 2006 FECAL OCCULT BLOOD FECAL OCCULT BLOOD [facility] Start: 2006 LIPID SCREEN LIPID SCREEN [facility] Start: 2006 SIGMOIDOSCOPY SIGMOIDOSCOPY [facility] Start: 2001 Mammography MAMMOGRAM [facility] Start: 2001 Screening for malignant neoplasm of breast Mammogram [facility] Start: 09-27-1991 HPV TESTING HPV TESTING [facility] Start: 09-27-1991 Screening for malignant neoplasm of cervix [facility] Start: 1982 PAP TESTING PAP TESTING [facility] Start: 1982 Screening for malignant neoplasm of cervix Pap Smear [facility] Start: 1980 DTaP/Tdap/Td Vaccines (1 - Tdap) DTaP/Tdap/Td Vaccines (1 - Tdap) [facility] Start: 1980 Urine microalbumin profile DTAP,TDAP,TD (1 - Tdap) [facility] Start: 09-27-1979 HEPATITIS C SCREENING HEPATITIS C SCREENING [facility] Start: 09-27-1979 Hepatitis C screening Hepatitis C Screening [facility] Start: 09-27-1979 HIV SCREENING HIV SCREENING [facility] Start: 1973 Depression Screening Depression Screening [facility] Start: 1962 MMR Vaccines (1 of 1 - Standard series) MMR Vaccines (1 of 1 - Standard series) [facility] Start: 1961 HIV screening [facility]: 1960 Screening for malignant neoplasm of colon [facility] Payers Date Payer Category Payer Self-pay [id number] 2022 Unknown [id number] 2021 Private Health Insurance [id number] 2021 Private Health Insurance AET[employer] A ETNA CHOICE POS II [id number] 2021-Present [phone] [address] [place] [address] POS [id number] 1960 Unknown [id number] 27 Unknown [id number] Unknown [id number] 62 Unknown [id number] 62 Unknown [id number] 62 Unknown [id number] Social History Date Type Detail Facility Start: 02-18-2021 End: 04-05-2022 Tobacco smoking status NHIS Unknown if ever smoked [facility] Start: 01-16-2018 Non-smoker [facility] Start: 1960 Sex Assigned At Female [facility] Start: 02-23-2022 End: 04-05-2023 Tobacco smoking status NHIS Never smoked tobacco [facility] Start: 02-23-2022 Tobacco use and exposure Smokeless tobacco non-user [facility] Start: 02-23-2022 Alcohol intake Current drinke r of alcohol (finding) [facility] Start: 02-23-2022 Alcohol Comment couple times a month [facility] Start: 1960 Sex Assigned At Not on file [facility] Start: 02-13-2022 End: 02-23-2022 Exposure to SARS-CoV-2 (event) Not sure [facility] Gender identity Not on file [facility] Clinical Notes 02-23-2022 to 08-23-2024 Note Date & Type Note Facility 08-23-2024 Evaluation note Diagnosis Onset Date Resolution Essential hypertension chronic Ma y 2024 11:40am Essential hypertension chronic Ju ly 2024 8:07am [place] [facility] Work Phone: 1(139) 571-697909-11-2024 Telephone encounter Note* Telephone Encounter - Uyen Julio - 12/07/2023 4:29 PM EDT Name of caller: Johana Contact phone number: [phone] Relationship to Patient: patient Provider: Dr. Calderon Practice: [facility] Chief Complaint/Reason for Call: Patient states that they received a notice from their pharmacy that they are waiting on Dr. Calderon to approve a 90-day prescription for AML but they are not sure what this is for. Patient also states that they got a new dose of Ozempic and they took all 4 doses of this and their pharmacy had called to renew this prescription but then their pharmacy came back and said that they cannot renew this until January. Patient states that they are not sure what is going on with that but they did alright with this new dose. Patient is requesting a call back. Please advise. Best time of day caller can be reached: Any Patient advised that office/PCP has 24-48 business hours to return their call: Yes [id number] Miscellaneous Notes* Telephone Encounter - Uyen Julio - 12/07/2023 4:29 PM EDT Name of caller: Johana Contact phone number: [phone] Relationship to Patient: patient Provider: Dr. Calderon Practice: [facility] Chief Complaint/Reason for Call: Patient states that they received a notice from their pharmacy that they are waiting on Dr. Calderon to approve a 90-day prescription for AML but they are not sure what this is for. Patient also states that they got a new dose of Ozempic and they took all 4 doses of this and their pharmacy had called to renew this prescription but then their pharmacy came back and said that they cannot renew this until January. Patient states that they are not sure what is going on with that but they did alright with this new dose. Patient is requesting a call back. Please advise. Best time of day caller can be reached: Any Patient advised that office/PCP has 24-48 business hours to return their call: Yes documented in this [facility]11-29-2022 NoteHNO ID: [id number] Author: Yong Rosenberg PA-C Service: ? Author Type: Physician Net Architect Type: Progress Notes Filed: 03/02/2022 12:46 PM Note Text: HISTORY AND PHYSICAL Johana Ambrocio Nohemy 1960 REFERRING PHYSICIAN: Estephania Carrasquillo DO CHIEF COMPLAINT: Consult (colonoscopy) HPI: The patient is a 61 year old female referred for endoscopy. Johana notes no colon complaints. Patient denies any change in bowel habits, weight changes, blood in stools, black tarry stools or abdominal pain. Denies family history of colon issues. The patient notes no upper GI complaints. Johana has undergone prior endoscopy. Last colonoscopy performed by Dr. Garcia at [facility] on 01/16/18. Patient had two recto-sigmoid colon polyps removed and three year follow-up was recommended. Records reviewed, per pathology report from [facility] final pathology showed hyperplastic polyp tissue. PAST MEDICAL HISTORY Diagnosis Date Diabetes mellitus (HCC) 03/2019 PAST SURGICAL HISTORY Procedure Laterality Date COLONOSCOPY 01/16/2018 repeat in 3 years EXT HYSTERECTOMY,W/PARTIAL VAGINECTO 03/2015 Current Outpatient Medications Medication Sig semaglutide (OZEMPIC) 0.25 mg or 0.5 mg(2 mg/1.5 mL) pen Inject 0.25 mg subcutaneously one time a week. No current facility-administered medications for this visit. ALLERGIES: Penicillins PERSONAL HISTORY: Social History Tobacco Use Smoking status: Never Smokeless tobacco: Never Vaping Use Vaping Use: Never used Substance Use Topics Alcohol use: Yes Comment: couple times a month Drug use: Never FAMILY HISTORY: FAMILY HISTORY Problem Relation Age of Onset Cancer Father REVIEW OF SYMPTOMS: The review of systems data was entered by the nurse and reviewed by me Nursing Notes: Ashly Peterson RN 02/23/2022 9:54 AM Signed REVIEW OF SYSTEMS: General: The patient NOTES fatigue, denies weight loss, NOTES weight gain, denies feeling hot, and denies feelings of cold. Eyes: The patient denies glaucoma, denies eye injury/surgery, does not wear glasses or contacts. Ear/Nose/Throat: The patient NOTES allergies, denies hayfever, denies ear infections, and denies bloody noses. Cardiovascular: The patient denies chest pain, denies heart disease, denies high blood pressure,denies cardiac stent, denies prior heart attack, denies irregular heart beat, denies high cholesterol, denies poor circulation, denies heart failure, other cardiac issues, denies claudication, NOTES cold feet, denies peripheral arterial stent. Respiratory: The patient denies tuberculosis, denies pneumonia, denies frequent cough, denies pulmonary embolism, denies shortness of breath, and denies coughing up blood. Gastrointestinal: The patient denies difficulty swallowing, denies acid reflux, denies ulcers, denies vomiting, denies jaundice/hepatitis, denies gallbladder problems, denies black or tarry stools, denies hemorrhoids, denies bleeding from rectum, denies diverticulitis, denies constipation, denies diarrhea, denies loss of stool control, and denies hernias. Kidney/Bladder: The patient denies kidney stones, denies urine infections, and denies bloody urine. Skin: The patient denies a history of skin cancer, denies bleeding/changing moles, and denies a history of skin rash. Neurologic: The patient denies a history of epilepsy/convulsions, NOTES headaches, denies head/spinal injuries, and denies stroke/TIA. Psychiatric: The patient denies psychiatric medications, denies depression, and denies voices, denies substance abuse. Endocrine: The patient denies thyroid disorders, NOTES diabetes, and denies hormonal problems. Hematologic: The patient denies a history of bruising, denies bleeding, and denies anemia, denies blood clots. Infections: The patient NOTES a history of measles and mumps, denies rheumatic fever, and denies sexually transmitted diseases. Musculoskeletal: The patient denies back pain/injury, NOTES back problems, denies sciatica, denies knee/foot trouble, denies arthritis, or denies gout. When was patient's last Mammogram screening? 01/2022 Last Colonoscopy: 01/16/2018 Ashly Peterson RN I have confirmed and edited as necessary, the PFSH and ROS obtained by others. Yong Rosenberg PA-C PHYSICAL EXAMINATION: General: The patient is 61 year old female, well nourished, well hydrated in no acute distress. The patient is oriented to time, place, and person. VITALS: Blood pressure 136/88, pulse 97, temperature 36.7 ?C (98 ?F), height 157.5 cm (5' 2), weight 96.2 kg (212 lb), SpO2 98 %. Body mass index is 38.78 kg/m?. HEENT: Normal cephalic, ataumatic, pupils are equally round, sclera are anicteric, mucous membranes are moist, oropharynx is clear. Neck has no masses, asymmetry or lymphadenopathy. Respiratory: Clear to auscultation and percussion. Normal respiratory excursion and pattern. Cardiac: Examination is reg (more content not included)...[facility]11-29-2022 Nurse Note* Ashly Peterson RN - 02/23/2022 9:53 AM EST REVIEW OF SYSTEMS: General: The patient NOTES fatigue, denies weight loss, NOTES weight gain, denies feeling hot, and denies feelings of cold. Eyes: The patient denies glaucoma, denies eye injury/surgery, does not wear glasses or contacts. Ear/Nose/Throat: The patient NOTES allergies, denies hayfever, denies ear infections, and denies bloody noses. Cardiovascular: The patient denies chest pain, denies heart disease, denies high blood pressure,denies cardiac stent, denies prior heart attack, denies irregular heart beat, denies high cholesterol, denies poor circulation, denies heart failure, other cardiac issues, denies claudication, NOTES coldfeet, denies peripheral arterial stent. Respiratory: The patient denies tuberculosis, denies pneumonia, denies frequent cough, denies pulmonary embolism, denies shortness of breath, and denies coughing up blood. Gastrointestinal: The patient denies difficulty swallowing, denies acid reflux, denies ulcers, denies vomiting, denies jaundice/hepatitis, denies gallbladder problems, denies black or tarry stools, denies hemorrhoids, denies bleeding from rectum, denies diverticulitis, denies constipation, denies diarrhea, denies loss of stool control, and denies hernias. Kidney/Bladder: The patient denies kidney stones, denies urine infections, and denies bloody urine. Skin: The patient denies a history of skin cancer, denies bleeding/changing moles, and denies a history of skin rash. Neurologic: The patient denies a history of epilepsy/convulsions, NOTES headaches, denies head/spinal injuries, and denies stroke/TIA. Psychiatric: The patient denies psychiatric medications, denies depression, and denies voices, denies substance abuse. Endocrine: The patient denies thyroid disorders, NOTES diabetes, and denies hormonal problems. Hematologic: The patient denies a history of bruising, denies bleeding, and denies anemia, denies blood clots. Infections: The patient NOTES a history of measles and mumps, denies rheumatic fever, and denies sexually transmitted diseases. Musculoskeletal: The patient denies back pain/injury, NOTES back problems, denies sciatica, denies knee/foot trouble, denies arthritis, or denies gout. When was patient's last Mammogram screening? 01/2022 Last Colonoscopy: 01/16/2018 Ashly Peterson RN [facility] Inst[facility]* Patient Instructions* Yong Rosenberg PA-C - 02/23/2022 9:41 AM EST Pathology from your 2018 screening colonoscopy reviewed-both polyps were hyperplastic, which are not associated with increased risk of colon cancer. Per current colorectal cancer screening and surveillance guidelines, you are due for repeat colonoscopy in December 2027 if no changes in bowel habits or other new concerns before that time [facility] History of Present illness Narrative* Yong Rosenberg PA-C - 02/23/2022 9:15 AM EST HISTORY AND PHYSICAL Johana Slater 1960 REFERRING PHYSICIAN: Estephania Carrasquillo DO CHIEF COMPLAINT: Consult (colonoscopy) HPI: The patient is a 61 year old female referred for endoscopy. Johana notes no colon complaints. Patient denies any change in bowel habits, weight changes, blood in stools, black tarry stools or abdominal pain. Denies family history of colon issues. The patient notes no upper GI complaints. Johana has undergone prior endoscopy. Last colonoscopy performed by Dr. Garcia at [facility] on 01/16/18. Patient had two recto-sigmoid colon polyps removed and three year follow-up was recommended. Records reviewed, per pathology report from [facility] final pathology showed hyperplastic polyp tissue. PAST MEDICAL HISTORY Diagnosis Date Diabetes mellitus (HCC) 03/2019 PAST SURGICAL HISTORY Procedure Laterality Date COLONOSCOPY 01/16/2018 repeat in 3 years EXT HYSTERECTOMY,W/PARTIAL VAGINECTO 03/2015 Current Outpatient Medications Medication Sig semaglutide (OZEMPIC) 0.25 mg or 0.5 mg(2 mg/1.5 mL) pen Inject 0.25 mg subcutaneously one time a week. No current facility-administered medications for this visit. ALLERGIES: Penicillins PERSONAL HISTORY: Social History Tobacco Use Smoking status: Never Smokeless tobacco: Never Vaping Use Vaping Use: Never used Substance Use Topics Alcohol use: Yes Comment: couple times a month Drug use: Never FAMILY HISTORY: FAMILY HISTORY Problem Relation Age of Onset Cancer Father REVIEW OF SYMPTOMS: The review of systems data was entered by the nurse and reviewed by pa Nursing Notes: Ashly Peterson RN 02/23/2022 9:54 AM Signed REVIEW OF SYSTEMS: General: The patient NOTES fatigue, denies weight loss, NOTES weight gain, denies feeling hot, and denies feelings of cold. Eyes: The patient denies glaucoma, denies eye injury/surgery, does not wear glasses or contacts. Ear/Nose/Throat: The patient NOTES allergies, denies hayfever, denies ear infections, and denies bloody noses. Cardiovascular: The patient denies chest pain, denies heart disease, denies high blood pressure,denies cardiac stent, denies prior heart attack, denies irregular heart beat, denies high cholesterol, denies poor circulation, denies heart failure, other cardiac issues, denies claudication, NOTES coldfeet, denies peripheral arterial stent. Respiratory: The patient denies tuberculosis, denies pneumonia, denies frequent cough, denies pulmonary embolism, denies shortness of breath, and denies coughing up blood. Gastrointestinal: The patient denies difficulty swallowing, denies acid reflux, denies ulcers, denies vomiting, denies jaundice/hepatitis, denies gallbladder problems, denies black or tarry stools, denies hemorrhoids, denies bleeding from rectum, denies diverticulitis, denies constipation, denies diarrhea, denies loss of stool control, and denies hernias. Kidney/Bladder: The patient denies kidney stones, denies urine infections, and denies bloody urine. Skin: The patient denies a history of skin cancer, denies bleeding/changing moles, and denies a history of skin rash. Neurologic: The patient denies a history of epilepsy/convulsions, NOTES headaches, denies head/spinal injuries, and denies stroke/TIA. Psychiatric: The patient denies psychiatric medications, denies depression, and denies voices, denies substance abuse. Endocrine: The patient denies thyroid disorders, NOTES diabetes, and denies hormonal problems. Hematologic: The patient denies a history of bruising, denies bleeding, and denies anemia, denies blood clots. Infections: The patient NOTES a history of measles and mumps, denies rheumatic fever, and denies sexually transmitted diseases. Musculoskeletal: The patient denies back pain/injury, NOTES back problems, denies sciatica, denies knee/foot trouble, denies arthritis, or denies gout. When was patient's last Mammogram screening? 01/2022 Last Colonoscopy: 01/16/2018 Ashly Peterson RN I have confirmed and edited as necessary, the PFSH and ROS obtained by others. Yong Rosenberg PA-C PHYSICAL EXAMINATION: General: The patient is 61 year old female, well nourished, well hydrated in no acute distress. Thepatient is oriented to time, place, and person. VITALS: Blood pressure 136/88, pulse 97, temperature 36.7 C (98 F), height 157.5 cm (5' 2), wewtri10.2 kg (212 lb), SpO2 98 %. Body mass index is 38.78 kg/m . HEENT: Normal cephalic, ataumatic, pupils are equally round, sclera are anicteric, mucous membranesare moist, oropharynx is clear. Neck has no masses, asymmetry or lymphadenopathy. Respiratory: Clear to auscultation and percussion. Normal respiratory excursion and pattern. Cardiac: Examination is regular rate and rhythm. Normal S1/S2 Abdominal exam: Soft, nontender, with no palpable masses. No hepatosplenomegaly. No palpable hernias. Extremities: no clubbing, cyanosis or edema. No adenopathy. LABORATORY VALUES: As Noted RADIOLOGIC STUDIES: As Noted Assessment IMPRESSION: encounter for screening colonoscopy. Per current guidelines, patient due in 2027 unlessnew concerns or change to family history PLAN: Reviewed operative and pathology reports with patient, as well as current screening and surveillance guidelines. Pathology from your 2018 screening colonoscopy reviewed-both polyps were hyperplastic,which are not associated with increased risk of colon cancer. Per current colorectal cancer screening and surveillance guidelines, patient due for repeat colonoscopy in December 2027 if no changes in bowel habits or other new concerns before that time. Confirmed with patient no family history, and no previous history of colonoscopies or adenomatous polyps. Patient was offered to proceed with colonoscopy at this time as originally recommended, vs deferring based on updated guidelines. Patient stated she is having no bowel issues and will defer screening colonoscopy until 2027. HM and recall updated in [facility] Diagnoses: (K63.5) Hyperplastic polyp of sigmoid colon (primary encounter diagnosis) (Z12.11) Encounter for screening for malignant neoplasm of colon Consultation requested by Dr. Carrasquillo for an opinion regarding screening colonoscopy. My final recommendations will be communicated back to the requesting physician by way of shared Medical record or letter to requesting physician via [place] mail. Yong Rosenberg PA-C [facility] Diagnosis Onset Date Resolution Status Shortness of breath acute Essential hypertension [facility] Work Phone: evaluation noteNo assessment information available [facility] Work Phone: evaluation note* Diagnosis Onset Date Resolution Status Fracture of T10 vertebra acu te Osteopenia acute [facility] Work Phone: Evaluation note* Diagnosis Onset Date Resolution Status Fracture of T10 vertebra acu te Osteopenia acute Congenital hemivertebra acut e [facility] Work Phone: evaluation note* Diagnosis Hyperplastic polyp of sigmoid colon- Primary Encounter for screening for malignant neoplasm of colon Special screening for malignant neoplasms, colon documented in this encounter [facility] note* Diagnosis Onset Date Resolution Status Fatigue acute Shortness of breath acute Essential hypertension [facility] Work Phone: Evaluation note* Diagnosis Onset Date Resolution Status Admit Date Essential hypertension chronic Ma y 2024 11:40am [facility] Work Phone: Reason for referral (narrative)No reason for referral [facility]: Chief Complaint and Reason for Visit Chief Complaint 3 M FU TYPE 2 DM Reason for Visit Shortness of breath Essential hypertension Chief Complaint OSTEOPOROSIS SCREENI NG TYPE 2 DM Chief Complaint OSTEOPOROSIS SCREENI NG TYPE 2 DM TYPE 2 DM Thoracic pain Reason for Visit Fracture of T10 vert ebra Osteopenia Chief Complaint OSTEOPOROSIS SCREENI NG TYPE 2 DM TYPE 2 DM Thoracic pain Unspecified fracture of T9-T10 vertebra, initial e Reason for Visit Fracture of T10 vert ebra Osteopenia Chief Complaint OSTEOPOROSIS SCREENI NG TYPE 2 DM TYPE 2 DM Thoracic pain Unspecified fracture of T9-T10 vertebra, initial e thoracic HEMIVERTEBRA T8-9 T9-10. RX HERE TYPE 2 DM Reason for Visit Fracture of T10 vert ebra Osteopenia Congenital hemivertebra Chief Complaint TYPE 2 DM SCREENING Chief Complaint SCREENING 6 M FU OTHER FATIGUE, SHORTNESS OF BREATH Reason for Visit Fatigue Shortness of breath Essential hypertension Chief Complaint SCREENING Chief Complaint Admit Date 6 M FU August 23, 2024 11:40 am Reason for Visit Admit Date Essential hypertension August 23, 2024 11 :40am Chief Complaint Admit Date 6 M FU August 23, 2024 11:40 am 6 W FU October 10, 2024 8:07 am Reason for Visit Admit Date Essential hypertension August 23, 2024 11 :40am Essential hypertension October 10, 2024 8 :07am Family History No Family History Records Found Relationship Condition Age at Onset Recorded Date/T sindy Unknown Family History?No pe rtinent history Unknown January 16, 2018 10:01am Family History?No pe rtinent history Unknown January 16, 2018 10:01am Relationship Condition Age at Onset Recorded Date/T sindy father Malignant neoplasm Unknown Advance Directives No Advanced Directives Records Found Advance Directive Response Recorded Date/ Time Living Will No January 11 3:18pm Power of Field Tax Auditor No January 11, 2018 3:18pm Advance Directive Response Recorded Date/ Time Living Will No January 11 2:18pm Power of Field Tax Auditor No January 11, 2018 2:18pm Summary Purpose Additional Source Comments Goals (unrecognized section and content) Goals may be documented in a n alternate sectionGoals may be documented in an alternate sectionGoals may be documented in an alternate sectionGoals may be documented in an alternate sectionGoals may be documented in an alternate sectionGoals may be documented in an alternate sectionGoals may be documented in an alternate sectionGoals may be documented in an alternate sectionGoals may be documented in an alternate sectionGoals may be documented in an alternate sectionGoals may be documented in an alternate section Source Comments (unrecognize d section and content) In the event this informatio n is protected by the Federal Confidentiality of Alcohol and Drug Abuse Patient Records regulations: The Federal rules restrict any use of the information to criminally investigate or prosecute any alcohol or drug abuse patient.[facility] Reason for Visit (unrecogniz ed section and content) Reason Comments Consult colonoscopy Reason Onset Date Comments Medication Problem 12/07/2023 Care Teams (unrecognized sec tion and content) Marketing Planner Relationship Specialty Start Date End Date Estephania Carrasquillo DO [address] [place] [address] PCP - General Family Medicine 02/10/22 Team Status: Active Member Role Status Dates Dr. Jono Moncada MD Family Provider Active Estephania Carrasquillo DO Primary Care Provider Active Team Status: Inactive Member Role Status Dates Estephania Carrasquillo DO Primary Care Provider, Referring Provider Active Dr. Rell Collado MD Active Rafaela Bird AUDIT TECH, AUDIT TECH-C Attending Provider Active Team Status: Inactive Member Role Status Dates Estephania Carrasquillo DO Primary Care Provider, Attending Provider Active Team Status: Inactive Member Role Status Dates Estephania Carrasquillo DO Primary Care Provider Active Rafaela Bird AUDIT TECH, AUDIT TECH-C Attending Provider, Referring P tramaine Active Team Status: Inactive Member Role Status Dates Estephania Carrasquillo DO Primary Care Provi shayy, Attending Provider, Referring Provider Active Team Status: Active Member Role Status Dates Dr. Jono Moncada MD Family Provider Active Dr. Erma Calderon MD Primary Care Provider Active Team Status: Inactive Member Role Status Dates Dr. Erma Calderon MD Primary Care Provider Active Start: August 23, 2024 End: August 23, 2024 Dr. Erma Calderon MD Referring Provider Active S tart: August 23, 2024 End: August 23, 2024 Stacie Cazares PA, PA Attending Provider Active Start: August 23, 2024 End: August 23, 2024 Team Status: Active Member Role/Relationship Status Dates Dr. Jono Moncada MD Family Provider Active Dr. Erma Calderon MD Primary Care Provider Active Team Status: Inactive Member Role/Relationship Status Dates Dr. Erma Calderon MD Primary Care Provider Active Start: August 23, 2024 End: August 23, 2024 Dr. Erma Calderon MD Referring Provider Active S tart: August 23, 2024 End: August 23, 2024 Stacie Cazares PA, PA Attending Provider Active Start: August 23, 2024 End: August 23, 2024 Team Status: Inactive Member Role/Relationship Status Dates Dr. Erma Calderon MD Primary Care Provider Active Start: October 10, 2024 End: October 10, 2024 Dr. Erma Calderon MD Referring Provider Active S tart: October 10, 2024 End: October 10, 2024 USMAN Henry Attending Provider Active Start: October 10, 2024 End: October 10, 2024 INFORMATION SOURCE (unrecogn ized section and content) DATE CREATED AUTHOR 03/03/2022 [facility] DATE CREATED AUTHOR AUTHOR'S ORGANIZ ATION 12/09/2023 [facility] DATE CREATED AUTHOR AUTHOR'S ORGANIZ ATION [facility]/16/20[facility] DATE CREATED AUTHOR AUTHOR'S ORGANIZ ATION 01/18/2025 [facility] FOR RECORDS PERTAINING TO PATIENTS WHO ARE OR HAVE BEEN ENROLLED IN A CHEMICAL DEPENDENCY/SUBSTANCEABUSE PROGRAM, SOME INFORMATION MAY BE OMITTED. This clinical summary was aggregated from multiple sources. Caution should be exercised in using it in the provision of clinical care. This summary normalizes information from multiple sources, and as a consequence, information in this document may materially change the coding, format and clinical context of patient data. In addition, data may be omitted in some cases. CLINICAL DECISIONS SHOULD BE BASED ON THE PRIMARY CLINICAL RECORDS. [employer] [facility]. provides no warranty or guarantee of the accuracy or completeness of information in this document.
== END | disposition home or self-care (01) ==
LOC: OPBI 03-11 07:05
PROVIDERS: PCP Family Medicine; Referring Provider Family Medicine; Visit Provider Family Medicine
DX: Z12.31 Encounter for screening mammogram for malignant neoplasm of breast (principal)
CPT/HCPCS: 77063; 77067